=== PATIENT | female | born 1980 | race Caucasian/White ===

== ENCOUNTER 2020-02-07 07:59 | Inpatient (IN) | payer OTHER ==
--- NOTE | 2020-02-07 08:19 | PDOC ---
History of Present Illness - General Stated Complaint: ABD PAIN Time Seen by Provider: 02/07/20 08:16 History Source: Patient Exam Limitations: No Limitations - History of Present Illness Initial Comments: 02/07/20 08:17 39yF w PMHx R ovarian cyst, EtOH use, appendectomy (Dr Gamez 12/12) presenting w sudden onset constant moderate RLQ pain, nausea, ABD distension which woke her up from sleep at 7p last night. Took tylenol, tonia tea w/o relief. No bowel mvmts since pain onset. Had appendicits s/p appendectomy done by Dr Gamez 12/12. Denies recent EtOH use. Denies fever, vomiting, chest pain, SOB, dysuria. Past History - Medical History Allergies/Adverse Reactions: Allergies Allergy/AdvReac Type Severity Reaction Status Date / Time No Known Allergies Allergy Verified 02/07/20 08:26 Home Medications: Ambulatory Orders NK [No Known Home Medication] 12/13/19 COPD: No - Surgical History Appendectomy: Yes (? jan 12 2020) - Immunization History Immunization Up to Date: Yes - Psycho-Social/Smoking History Smoking History: Never smoked Have you smoked in the past 12 months: No Review of Systems - Review of Systems Constitutional: No: Chills, Fever HEENTM: No: Eye Pain, Nose Congestion Respiratory: No: Cough, Shortness of Breath Cardiac (ROS): No: Chest Pain, Palpitations ABD/GI: Yes: Abdominal Distended, Nausea. No: Constipated, Diarrhea, Vomiting : No: Burning, Dysuria Musculoskeletal: No: Back Pain, Joint Pain Integumentary: No: Bruising, Flushing Neurological: No: Headache, Seizure Psychiatric: No: Anxiety, Depression Endocrine: No: Intolerance to Cold, Intolerance to Heat Hematologic/Lymphatic: No: Anemia, Blood Clots *Physical Exam - Physical Exam General Appearance: Yes: Nourished, Appropriately Dressed, Mild Distress HEENT: positive: EOMI, ALFA, Normal Voice, Hearing Grossly Normal. negative: Scleral Icterus (R), Scleral Icterus (L) Respiratory/Chest: positive: Lungs Clear, Normal Breath Sounds. negative: Chest Tender, Respiratory Distress Cardiovascular: positive: Regular Rhythm, Regular Rate, S1, S2. negative: Edema, Murmur Gastrointestinal/Abdominal: positive: Tender (moderate RLQ, mild diffuse), Soft, Distended (mild), Other (healed RLQ surgical scar) Musculoskeletal: negative: CVA Tenderness (R), CVA Tenderness (L) Extremity: negative: Pedal Edema Integumentary: positive: Normal Color, Warm Neurologic: positive: Fully Oriented, Alert, Normal Response, Responsive ED Treatment Course - LABORATORY CBC & Chemistry Diagram: 02/07/20 09:50 02/07/20 09:50 Medical Decision Making - Medical Decision Making 02/07/20 08:56 TVUS - no sign of torsion, echogenic vascular mass/polyp 1.7x0.9cm likely complex surrounding fluid/hemorrhage in endometrial cavity EKG - NSR, HR 97, QTc 464, no ST changes CT A/P - s/p appendectomy w postop fluid collections, RLQ soft tissue inflammation, small abscesses 13 w L shift --- 39yF w PMHx R ovarian cyst, EtOH use, appendectomy (Dr Gamez 12/12) presenting w 1d RLQ pain, nausea, ABD distension d/t postop abscesses/fluid and UTI. Also has endometrial echogenic vascular mass needing OBGYN f/u. Low concern for ovarian torsion (neg) vs kidney stone (no blood) vs (neg) vs pancreatitis (lipase low) Given 1L NS, zofran, morphine, vanc, zosyn Consulted Dr Gamez - unsure why pt will have abscess 2mo from surgery, not surgical option, likely IR drainage Admit m/s for postop abscesses, UTI, endometrial mass No PCP Discharge - Discharge Information Problems reviewed: Yes Clinical Impression/Diagnosis: Postoperative abscess, Endometrial mass UTI (urinary tract infection) Qualifiers: Urinary tract infection type: acute cystitis Hematuria presence: without hematuria Qualified Code(s): N30.00 - Acute cystitis without hematuria Condition: Stable - Follow up/Referral - Patient Discharge Instructions - Post Discharge Activity
[2020-02-07] MEDS ORDERED: morphine CARPU-JECT 4 MG/1 ML DISP.SYRIN IVPUSH ONE (08:40)
[2020-02-07] MEDS ORDERED: SODIUM CHLORIDE 0.9% 500 ML INFUS.BAG IV ONE (08:41)
[2020-02-07] MEDS ORDERED: ONDANSETRON 4 MG/2 ML VIAL IVPUSH ONE (08:41)
[2020-02-07] MEDS ORDERED: morphine SULFATE 4 MG/ML VIAL ONE (08:53)
--- NOTE | 2020-02-07 09:28 | PDOC ---
Attending Attestation - Resident Resident Name: Isaias Harp - ED Attending Attestation I have performed the following: I have examined & evaluated the patient, The case was reviewed & discussed with the resident, I agree w/resident's findings & plan, Exceptions are as noted - HPI HPI: 39 yo history ovarian cyst, EtOH use, appendectomy 12/12 presents with RLQ pain, nausea, abdominal swelling, woke her from sleep last night. Has been taking tylenol for pain, no significant relief. Has not had BM since pain started. Had an open appendectomy 2 months ago, uncomplicated. Denies fever, chills, vomiting. - Physicial Exam PE: GENERAL: Awake, alert, and fully oriented, in no acute distress. Appears uncomfortable. HEAD: No signs of trauma EYES: PERRLA, EOMI, sclera anicteric, conjunctiva clear ENT: Auricles normal inspection, hearing grossly normal, nares patent, oropharynx clear without exudates. Moist mucosa NECK: Normal ROM, supple, no lymphadenopathy, JVD, or masses LUNGS: Breath sounds equal, clear to auscultation bilaterally. No wheezes, and no crackles HEART: Regular rate and rhythm, normal S1 and S2, no murmurs, rubs or gallops ABDOMEN: Soft, mildly distended, diffusely tender, but worst in RLQ. Abd is somewhat firm. Dec bowel sounds. +Guarding, +rebound. No masses EXTREMITIES: Normal range of motion, no edema. No clubbing or cyanosis. No cords, erythema, or tenderness NEUROLOGICAL: Cranial nerves II through XII grossly intact. Normal speech. Motor and sensation intact SKIN: Warm, dry, normal turgor, no rashes or lesions noted. - Medical Decision Making Pt with diffusely tender abdomen, with guarding on initial exam. CT shows abscess formation in abd. Will give abx, consult Dr. Gamez, admit. Discharge - Discharge Information Problems reviewed: Yes Clinical Impression/Diagnosis: Postoperative abscess, Endometrial mass UTI (urinary tract infection) Qualifiers: Urinary tract infection type: acute cystitis Hematuria presence: without hematuria Qualified Code(s): N30.00 - Acute cystitis without hematuria Condition: Stable - Follow up/Referral - Patient Discharge Instructions - Post Discharge Activity
[2020-02-07 10:20] LABS: BASO % 0.1 % (0-2.0); HEMATOCRIT 33.6 % (32.4-45.2); HEMOGLOBIN 10.7 GM/dL (10.7-15.3); LYMPH % 2.8 % (8-40); MCH 24.6 pg (25.7-33.7); MCHC 31.9 g/dl (32.0-36.0); MEAN CELL VOLUME 77.2 fl (80-96); MEAN PLT VOLUME 10.1 fl (7.5-11.1); MONO % 2.8 % (3.8-10.2); NEUT % 94.3 % (42.8-82.8); PLATELET COUNT 123 K/MM3 (134-434); RBC 4.36 M/mm3 (3.60-5.2); RDW 16.3 % (11.6-15.6); WHITE BLOOD COUNT 13.7 K/mm3 (4.0-10.0)
[2020-02-07 10:28] LABS: EPI CELLS 31 /uL (0-25.1); HYALINE CASTS 1 /uL (0-3.1); PH,URINE 7.5 (5.0-8.0); URINE APPEARANCE CLOUDY; URINE BACTERIA 3162 /uL (0-1359); URINE BILIRUBIN NEGATIVE (NEGATIVE); URINE COLOR DK YELLOW; URINE GLUCOSE (UA) NEGATIVE (NEGATIVE); URINE KETONE TRACE (NEGATIVE); URINE LEUK ESTERASE NEGATIVE (NEGATIVE); URINE NITRITE NEGATIVE (NEGATIVE); URINE PROTEIN 1+ (NEGATIVE); URINE RBC 34 /uL (0-23.9); URINE WBC 33 /uL (0-25.8)
[2020-02-07 11:03] LABS: ALBUMIN 3.7 g/dl (3.4-5.0); BILIRUBIN,TOTAL 0.8 mg/dL (0.2-1); BLOOD UREA NITROGEN 6.6 mg/dL (7-18); CALCIUM 8.9 mg/dL (8.5-10.1); CREATININE 0.6 mg/dL (0.55-1.3)
[2020-02-07 12:20] LABS: ANISOCYTOSIS 1+; MACROCYTOSIS 1+; PLATELET ESTIMATE DECREASED
[2020-02-07] MEDS ORDERED: ACETAMINOPHEN 1000 MG/100 ML VIAL (NON FORMULARY) IVPB ONE (12:47)
[2020-02-07] MEDS ORDERED: PIPERACILLIN/TAZOB 4.5 GM 4.5 GM in DEXTROSE 5%-WATER 100 ML IVPB ONE (12:50)
[2020-02-07] MEDS ORDERED: VANCOMYCIN 1 GM in D5W (PRE-DOCKED) 1,000 MG/250 ML IVPB ONE (12:51)
[2020-02-07] MEDS ORDERED: PIPERACILLIN/TAZOB 4.5 GM 4.5 GM/100 ML BAG IVPB ONE (13:02)
[2020-02-07] MEDS ORDERED: ACETAMINOPHEN INJECTION 100 ML IVPB ONE (13:02)
[2020-02-07] MEDS ORDERED: VANCOMYCIN 1 GRAM (PRE-DOCKED) 1,000 MG/250 ML BAG IVPB ONE (13:49)
--- NOTE | 2020-02-07 14:09 | EKG ---
Test Reason : Blood Pressure : / mmHG Vent. Rate : 097 BPM Atrial Rate : 097 BPM P-R Int : 160 ms QRS Dur : 080 ms QT Int : 366 ms P-R-T Axes : 029 015 032 degrees QTc Int : 464 ms NORMAL SINUS RHYTHM NORMAL ECG NO PREVIOUS ECGS AVAILABLE Confirmed by Abad Stuart ([id number]) on 02/07/2020 2:08:33 PM Referred By: Confirmed By:Abad Stuart
[2020-02-07] MEDS ORDERED: FAMOTIDINE 20 MG/50 ML IVPB 20 MG/50 ML MG IVPB ONE ×2 (14:18→14:28)
--- NOTE | 2020-02-07 14:37 | CONSULT ---
- Consultation REQUESTING PROVIDER: Jorge LUGO CONSULT REQUEST: We have been asked to surgically evaluate this patient for abdominal pain. PCP: HISTORY OF PRESENT ILLNESS: [place] who is a 39 y/o female s/p open appendectomy for acute uncomplicated appendicitis 12/13/2019; she did well post op; intra abdominal cultures were negative for any growth at the time and she has been seen in the office post op; she developed RLQ pain yesterday and nausea and ? distention; she came to the ED for evaluation; she has been eating and moving her bowels. PMHx: none. PSHx: as above. Home Medications Medication Instructions Recorded NK [No Known Home Medication] 12/13/19 Allergies Allergy/AdvReac Type Severity Reaction Status Date / Time No Known Allergies Allergy Verified 02/07/20 08:26 REVIEW OF SYSTEMS: CONSTITUTIONAL: Absent: fever, chills, diaphoresis, generalized weakness, malaise, loss of ap petite, weight change CARDIOVASCULAR: Absent: chest pain, syncope, palpitations, irregular heart rate, lightheadedness, peripheral edema RESPIRATORY: Absent: cough, shortness of breath, dyspnea with exertion, wheezing, stridor, hemoptysis GASTROINTESTINAL: Present: abdominal pain, abdominal distension, nausea, vomiting. Absent: diarrhea, constipation, melena, hematochezia GENITOURINARY: Absent: dysuria, frequency, urgency, hesitancy, hematuria, flank pain, genital pain MUSCULOSKELETAL: Absent: myalgia, arthralgia, joint swelling, back pain, neck pain SKIN: Absent: rash, itching, pallor HEMATOLOGIC/IMMUNOLOGIC: Absent: easy bleeding, easy bruising, lymphadenopathy NEUROLOGIC: Absent: headache, focal weakness, paresthesias, dizziness, unsteady gait, seizure, mental status changes, bladder or bowel incontinence PSYCHIATRIC: Absent: anxiety, depression, suicidal or homicidal ideation, hallucinations. PHYSICAL EXAM: GENERAL: Awake, alert, and fully oriented, in no acute distress. HEAD: Normal with no signs of trauma. EYES: PERRL, sclera anicteric, conjunctiva clear. NECK: Normal ROM, supple without lymphadenopathy, JVD, or masses. ABDOMEN: Soft,minimaly tender RLQ, not distended, normoactive bowel sounds, no guarding, no rebound, no masses. No organomegaly. Healed scar; no hernias. MUSCULOSKELETAL: Normal ROM at all joints. No bony deformities or tenderness. No CVA tenderness. UPPER EXTREMITIES: 2+ pulses, warm, well-perfused. No cyanosis. Cap refill <2 seconds. No peripheral edema. LOWER EXTREMITIES: 2+ pulses, warm, well-perfused. No calf tenderness. No peripheral edema. NEUROLOGICAL: Normal speech, gait not observed. PSYCH: Cooperative. Good eye contact. Appropriate mood and affect. SKIN: Warm, dry, normal turgor, no rashes or lesions noted. Vital Signs Temperature 100.1 F H 02/07/20 10:00 Pulse Rate 104 H 02/07/20 10:00 Respiratory Rate 16 02/07/20 10:00 Blood Pressure 122/72 02/07/20 10:00 O2 Sat by Pulse Oximetry (%) 98 02/07/20 10:00 Lab Results WBC 13.7 K/mm3 (4.0-10.0) H 02/07/20 09:50 RBC 4.36 M/mm3 (3.60-5.2) 02/07/20 09:50 Hgb 10.7 GM/dL (10.7-15.3) 02/07/20 09:50 Hct 33.6 % (32.4-45.2) 02/07/20 09:50 MCV 77.2 fl (80-96) L 02/07/20 09:50 MCHC 31.9 g/dl (32.0-36.0) L 02/07/20 09:50 RDW 16.3 % (11.6-15.6) H 02/07/20 09:50 Plt Count 123 K/MM3 (134-434) L 02/07/20 09:50 Sodium 138 mmol/L (136-145) 02/07/20 09:50 Potassium 4.0 mmol/L (3.5-5.1) 02/07/20 09:50 Chloride 105 mmol/L (98-107) 02/07/20 09:50 Carbon Dioxide 25 mmol/L (21-32) 02/07/20 09:50 Anion Gap 8 MMOL/L (8-16) 02/07/20 09:50 BUN 6.6 mg/dL (7-18) L 02/07/20 09:50 Creatinine 0.6 mg/dL (0.55-1.3) 02/07/20 09:50 Random Glucose 119 mg/dL (74-106) H 02/07/20 09:50 Calcium 8.9 mg/dL (8.5-10.1) 02/07/20 09:50 CT scan a/p reviewed IMP: ?intraabdominal abscess ? > 30 days post op w/o evidence of an acute surgical abdomen s/p open appendectomy 12/13/2019. PLAN: NPO/IVF/IVABS/ID Consult/IR consult for IRD collection; d/w the patient in [place]. Melvin Gamez MD FACS
--- NOTE | 2020-02-07 15:49 | HP ---
CHIEF COMPLAINT: Abdominal pains HISTORY OF PRESENT ILLNESS: 39 year old female who is sp appendectomy (12/13/19), known history of right ovarian cyst, alcohol use, who presents to the ED complaining of sudden onset of severe right lower qudrant pain which woke her up from sleep. She took OTC meds without relief prompting her to present to the ED At the ED she was found to be tachycardic and febrile. CT scan of the abdomen abnormal prompting admission. PAST MEDICAL HISTORY: as above PAST SURGICAL HISTORY: as above Social History: Smoking: denies Alcohol: she drinks alcohol ([place] beer) regularly, at least 5 per day Drugs: denies Family history: both parents are alive and well Allergies No Known Allergies Allergy (Verified 02/07/20 08:26) HOME MEDICATIONS: Home Medications Medication Instructions Recorded NK [No Known Home Medication] 12/13/19 REVIEW OF SYSTEMS CONSTITUTIONAL: Absent: fever, chills, diaphoresis, generalized weakness, malaise, loss of appetite HEENT: Absent: rhinorrhea, nasal congestion, throat pain, throat swelling, difficulty swallowing, mouth swelling, ear pain, eye pain, visual changes CARDIOVASCULAR: Absent: chest pain, syncope, palpitations, irregular heart rate, lightheadedness, peripheral edema RESPIRATORY: Absent: cough, shortness of breath, dyspnea with exertion, orthopnea, wheezing, stridor, hemoptysis GASTROINTESTINAL: Absent: abdominal pain, abdominal distension, nausea, vomiting, diarrhea, constipation, melena, hematochezia GENITOURINARY: Absent: dysuria, frequency, urgency, hesitancy, hematuria, flank pain, genital pain MUSCULOSKELETAL: Absent: myalgia, arthralgia, joint swelling, back pain, neck pain SKIN: Absent: rash, itching, pallor HEMATOLOGIC/IMMUNOLOGIC: Absent: easy bleeding, easy bruising, lymphadenopathy, frequent infections ENDOCRINE: Absent: unexplained weight gain, unexplained weight loss, heat intolerance, cold intolerance NEUROLOGIC: Absent: headache, focal weakness or paresthesias, dizziness, unsteady gait, seizure, mental status changes, bladder or bowel incontinence PSYCHIATRIC: Absent: anxiety, depression, suicidal or homicidal ideation, hallucinations. PHYSICAL EXAMINATION Vital Signs - 24 hr 02/07/20 02/07/20 02/07/20 08:00 10:00 14:30 Temperature 99.2 F 100.1 F H 98.9 F Pulse Rate 86 Pulse Rate [ 104 H Right Radial] Respiratory 16 16 Rate Blood Pressure 112/77 Blood Pressure 122/72 [Right Arm] O2 Sat by Pulse 99 98 Oximetry (%) 02/07/20 15:30 Temperature Pulse Rate Pulse Rate [ 104 H Right Radial] Respiratory 18 Rate Blood Pressure Blood Pressure 122/78 [Right Arm] O2 Sat by Pulse 98 Oximetry (%) GENERAL: Awake, alert, and fully oriented, in no acute distress. HEAD: Normal with no signs of trauma. EYES: Pupils equal, round and reactive to light, extraocular movements intact, sclera anicteric, conjunctiva clear. No lid lag. EARS, NOSE, THROAT: Ears normal, nares patent, oropharynx clear without exudates. Moist mucous membranes. NECK: Normal range of motion, supple without lymphadenopathy, JVD, or masses. LUNGS: Breath sounds equal, clear to auscultation bilaterally. No wheezes, and no crackles. No accessory muscle use. HEART: Regular rate and rhythm, normal S1 and S2 without murmur, rub or gallop. ABDOMEN: Soft, generalized tenderness however worse at the right lower quadrant; the surgical scar is notedly well healed. Abdomen is not distended, no bowel sounds, no guarding, no rebound, no masses. No hepatomegaly or splenomegaly. MUSCULOSKELETAL: Normal range of motion at all joints. No bony deformities or tenderness. No CVA tenderness. UPPER EXTREMITIES: 2+ pulses, warm, well-perfused. No cyanosis. No clubbing. No peripheral edema. LOWER EXTREMITIES: 2+ pulses, warm, well-perfused. No calf tenderness. No peripheral edema. NEUROLOGICAL: Cranial nerves III-XII intact. Normal speech. Normal gait. PSYCHIATRIC: Cooperative. Good eye contact. Appropriate mood and affect. SKIN: Warm, dry, decreased turgor. faint homogenous rash noted on the face and arms. No lesions noted, normal capillary refill. Laboratory Results - last 24 hr 02/07/20 02/07/20 02/07/20 09:50 09:50 09:50 WBC 13.7 H RBC 4.36 Hgb 10.7 Hct 33.6 MCV 77.2 L MCH 24.6 L MCHC 31.9 L RDW 16.3 H Plt Count 123 L MPV 10.1 Absolute Neuts (auto) 12.9 H Neutrophils % 94.3 H D Neutrophils % (Manual) 76.2 Band Neutrophils % 15.8 Lymphocytes % 2.8 L D Lymphocytes % (Manual) 4.0 L D Monocytes % 2.8 L Monocytes % (Manual) 4 D Eosinophils % 0.0 D Eosinophils % (Manual) 0.0 D Basophils % 0.1 Basophils % (Manual) 0.0 Myelocytes % (Man) 0 D Promyelocytes % (Man) 0 Blast Cells % (Manual) 0 Nucleated RBC % 0 Metamyelocytes 0 Hypochromia 0 Platelet Estimate Decreased Platelet Comment Present Polychromasia 1+ Poikilocytosis 1+ Anisocytosis 1+ Microcytosis 1+ Macrocytosis 1+ Spherocytes 1+ Stomatocytes 1+ Sodium Potassium Chloride Carbon Dioxide Anion Gap BUN Creatinine Est GFR (CKD-EPI)AfAm Est GFR (CKD-EPI)NonAf Random Glucose Lactic Acid Calcium Total Bilirubin AST ALT Alkaline Phosphatase Total Protein Albumin Lipase Serum , Qual Negative Urine Color Dk yellow Urine Appearance Cloudy Urine pH 7.5 Ur Specific [place] 1.025 Urine Protein 1+ H Urine Glucose (UA) Negative Urine Ketones Trace H Urine Blood Negative Urine Nitrite Negative Urine Bilirubin Negative Urine Urobilinogen 2.0 H Ur Leukocyte Esterase Negative Urine WBC (Auto) 33 Urine RBC (Auto) 34 Urine Casts (Auto) 1 U Epithel Cells (Auto) 31 Urine Bacteria (Auto) 3162 02/07/20 02/07/20 09:50 13:20 WBC RBC Hgb Hct MCV MCH MCHC RDW Plt Count MPV Absolute Neuts (auto) Neutrophils % Neutrophils % (Manual) Band Neutrophils % Lymphocytes % Lymphocytes % (Manual) Monocytes % Monocytes % (Manual) Eosinophils % Eosinophils % (Manual) Basophils % Basophils % (Manual) Myelocytes % (Man) Promyelocytes % (Man) Blast Cells % (Manual) Nucleated RBC % Metamyelocytes Hypochromia Platelet Estimate Platelet Comment Polychromasia Poikilocytosis Anisocytosis Microcytosis Macrocytosis Spherocytes Stomatocytes Sodium 138 Potassium 4.0 Chloride 105 Carbon Dioxide 25 Anion Gap 8 BUN 6.6 L Creatinine 0.6 Est GFR (CKD-EPI)AfAm 131.22 Est GFR (CKD-EPI)NonAf 113.22 Random Glucose 119 H Lactic Acid 1.4 Calcium 8.9 Total Bilirubin 0.8 AST 35 ALT 37 Alkaline Phosphatase 93 Total Protein 8.0 Albumin 3.7 Lipase 56 L Serum , Qual Urine Color Urine Appearance Urine pH Ur Specific [place] Urine Protein Urine Glucose (UA) Urine Ketones Urine Blood Urine Nitrite Urine Bilirubin Urine Urobilinogen Ur Leukocyte Esterase Urine WBC (Auto) Urine RBC (Auto) Urine Casts (Auto) U Epithel Cells (Auto) Urine Bacteria (Auto) Transvaginal US- both ovaries unremarkable. Normal thickness of endometrial stripe. with suggestion of an echogenic vascular mass/polyp. Likely complex surrouding fluid/hemorrhage in the endometrial cavity. HYDRAULIC PILE HAMMER OPERATOR consult suggested and further evaluation recommended. There is small amount of free fluid in the cul de sac and right adnexa. ASSESSMENT/PLAN: 1. RLQ pain - RLQ US showing possible fluid/hemorrage - foreign correspondent HYDRAULIC PILE HAMMER OPERATOR physician Dr Berger consulted - received empiric antibiotics in ED. She became flushed in face and arms. Flushing diminished after famotidine and benadryl. Will cont pip-tazo in the interim. - blood cultures - will request for Dr Sandoval of ID to see patient - fluid hydration - appreciate input by Dr Gamez - NPo except meds - tylenol for fevers 2. SCD for DVt prophylaxis Visit type - Emergency Visit Emergency Visit: Yes ED Registration Date: 02/07/20 Care time: The patient presented to the Emergency Department on the above date and was hospitalized for further evaluation of their emergent condition. - New Patient This patient is new to me today: Yes Date on this admission: 02/09/20 - Critical Care Critical Care patient: No
[2020-02-07] MEDS: SODIUM CHLORIDE 1,000 ML IV SCH (16:15)
[2020-02-07] MEDS ORDERED: ONDANSETRON 4 MG/2 ML VIAL IVPUSH PRN (16:20)
[2020-02-07 19:19] VITALS: BMI 28.3
[2020-02-07] MEDS ORDERED: PIPERACILLIN/TAZOB 3.375 GM 3.375 GM in DEXTROSE 5%-WATER - 50 ML IVPB SCH (19:45)
[2020-02-07] MEDS ORDERED: DEXTROSE 5%-WATER 100 ML IVPB ONE (19:49)
[2020-02-07] MEDS ORDERED: PIPERACILLIN/TAZOBACTAM 4.5 GM VIAL IVPB ONE (19:49)
[2020-02-07] MEDS ORDERED: LORazepam 1 MG TABLET PO PRN (19:56)
[2020-02-07] MEDS: ACETAMINOPHEN 1000 MG/100 ML VIAL (NON FORMULARY) IVPB PRN (20:01)
[2020-02-07] MEDS: PIPERACILLIN/TAZOB 4.5 GM 4.5 GM in DEXTROSE 5%-WATER 100 ML IVPB SCH (20:07)
[2020-02-07] MEDS: FOLIC ACID 1 MG TABLET (FP) PO SCH (20:08)
[2020-02-07] MEDS: THIAMINE HCL 100 MG TABLET (FP) PO SCH (20:08)
[2020-02-07] MEDS: MULTIVIT-MINERALS ORAL LIQUID PO SCH (21:29)
[2020-02-08] MEDS ORDERED: PIPERACILLIN/TAZOBACTAM 4.5 GM VIAL IVPB ONE ×3 (01:26→15:40)
[2020-02-08] MEDS ORDERED: DEXTROSE 5%-WATER 100 ML IVPB ONE ×3 (01:26→15:40)
[2020-02-08] MEDS: ACETAMINOPHEN 1000 MG/100 ML VIAL (NON FORMULARY) IVPB PRN ×3 (01:36→17:28)
[2020-02-08] MEDS: PIPERACILLIN/TAZOB 4.5 GM 4.5 GM in DEXTROSE 5%-WATER 100 ML IVPB SCH ×3 (02:54→18:16)
[2020-02-08] MEDS: SODIUM CHLORIDE 1,000 ML IV SCH ×2 (05:41→17:31)
--- NOTE | 2020-02-08 07:44 | PN ---
Progress Note (short form) - Note Progress Note: Attending Surgeon Case d/w Dr. Hope yesterday; no IRD is planned; full not to follow.
[2020-02-08 08:08] LABS: HEMATOCRIT 30.4 % (32.4-45.2); HEMOGLOBIN 9.8 GM/dL (10.7-15.3); MCH 24.8 pg (25.7-33.7); MCHC 32.2 g/dl (32.0-36.0); MEAN CELL VOLUME 76.9 fl (80-96); PLATELET COUNT 97 K/MM3 (134-434); RBC 3.95 M/mm3 (3.60-5.2); RDW 16.7 % (11.6-15.6); WHITE BLOOD COUNT 10.6 K/mm3 (4.0-10.0)
[2020-02-08 08:31] LABS: BLOOD UREA NITROGEN 7.6 mg/dL (7-18); CREATININE 0.5 mg/dL (0.55-1.3); POTASSIUM 3.5 mmol/L (3.5-5.1)
[2020-02-08] MEDS ORDERED: PT OWN MED DRAWER 7, Y5N ONE (09:02)
[2020-02-08] MEDS ORDERED: VANCOMYCIN 1,000 MG in DEXTROSE 5%-WATER - 250 ML IVPB SCH (09:30)
[2020-02-08] MEDS: THIAMINE HCL 100 MG TABLET (FP) PO SCH (09:55)
[2020-02-08] MEDS: FOLIC ACID 1 MG TABLET (FP) PO SCH (09:55)
[2020-02-08] MEDS: MULTIVIT-MINERALS ORAL LIQUID PO SCH (09:55)
[2020-02-08 11:09] LABS: INR 1.36 (0.83-1.09); PROTHROMBIN TIME (PATIENT) 16.1 SEC (9.7-13.0)
--- NOTE | 2020-02-08 11:19 | PN ---
Progress Note (short form) - Note Progress Note: Attending Surgeon Seen in f/u; minimal if any complaints. VSS was febrile last PM abdo-soft and non tender; o/w negative. WBC nl today IMP: improved PLAN: Continue IVAB's and start trial of clear iquids; case was d/w Dr. Hope yesterday who belived 3.0 cm. structure thought to be an abscess is the right ovary and o/w there are post op changes; will need f/u CT scan at some point. Melvin Gamez MD FACS
--- NOTE | 2020-02-08 12:45 | CON.ID ---
Consult Consult Specialty:: infectious diseases Referred by:: dr johns Reason for Consultation:: abd pain ,fever, post op - History of Present Illness Chief Complaint: fever,abd pain History of Present Illness: 39 year old female who is sp appendectomy (12/13/19), known history of right ovarian cyst, alcohol use, admitted complaining of sudden onset of severe right lower qudrant pain which woke her up from sleep. She took OTC meds without relief prompting her to present to the ED patient was worked up and imaging studies shows probably abscess patient spiking fevers and continues to have sever abd pain at the operated site - History Source History Provided By: Patient, Medical Record Limitations to Obtaining History: Language Barrier - Alcohol/Substance Use Hx Alcohol Use: Yes - Smoking History Smoking history: Never smoked Have you smoked in the past 12 months: No Home Medications - Allergies Allergies/Adverse Reactions: Allergies Allergy/AdvReac Type Severity Reaction Status Date / Time No Known Allergies Allergy Verified 02/07/20 08:26 - Home Medications Home Medications: Ambulatory Orders NK [No Known Home Medication] 12/13/19 Review of Systems - Review of Systems Constitutional: reports: Fever, Other Eyes: reports: No Symptoms HENT: reports: No Symptoms Neck: reports: No Symptoms Cardiovascular: reports: No Symptoms Respiratory: reports: No Symptoms Gastrointestinal: reports: Abdominal Pain Genitourinary: reports: No Symptoms Musculoskeletal: reports: No Symptoms Integumentary: reports: No Symptoms Neurological: reports: No Symptoms Endocrine: reports: No Symptoms Hematology/Lymphatic: reports: No Symptoms Psychiatric: reports: No Symptoms Physical Exam Vital Signs: Vital Signs Temperature 102 F H 02/08/20 09:00 Pulse Rate 104 H 02/08/20 09:00 Respiratory Rate 18 02/08/20 09:00 Blood Pressure 116/68 02/08/20 09:00 O2 Sat by Pulse Oximetry (%) 97 02/08/20 09:00 Constitutional: Yes: Well Nourished, Calm, Moderate Distress Eyes: Yes: Conjunctiva Clear HENT: Yes: Atraumatic, Normocephalic Neck: Yes: Supple, Trachea Midline Cardiovascular: Yes: Regular Rate and Rhythm Respiratory: Yes: Regular, CTA Bilaterally Gastrointestinal: Yes: Soft, Tenderness Musculoskeletal: Yes: WNL Extremities: Yes: WNL Wound/Incision: Yes: Clean/Dry Neurological: Yes: Alert, Oriented Psychiatric: Yes: Alert, Oriented Labs: CBC, BMP 02/08/20 06:35 02/08/20 06:35 Imaging - Results Cat Scan: Report Reviewed, Image Reviewed Ultrasound: Report Reviewed, Image Reviewed Assessment/Plan this patient post op who is coming with fever and abd pain suspicion of abscess as well as ovarian abscess i would continue abx monitor fevers if fevers continue will decide what to do rest as per the team
--- NOTE | 2020-02-08 13:02 | PN ---
Physical Exam: SUBJECTIVE: Patient seen and examined at bedside this morning. She endorses improvement in her abdominal pain, and some nausea. Denies shortness of breath, chest pain, palpitations. She states her last drink was 8 beers on Friday. OBJECTIVE: Vital Signs Period Temp Pulse Resp BP Sys/Arboleda Pulse Ox Last 24 Hr 98.9 F-103 F 94-106 16-20 108-123/66-80 97-100 GENERAL: The patient is awake, alert, and fully oriented, in no acute distress. HEAD: Normocephalic, atraumatic. EYES: PERRL, extraocular movements intact, sclera anicteric, conjunctiva clear. ENT: Oropharynx clear, without erythema or exudates. Moist mucous membranes. NECK: Trachea midline, full range of motion. Supple without lymphadenopathy. LUNGS: Breath sounds equal, clear to auscultation bilaterally. No wheezes, no crackles. No accessory muscle use. HEART: Regular rate and rhythm. S1, S2 without murmur, rub or gallop. ABDOMEN: Soft, nondistended. Tenderness to deep palpation worst at right lower quadrant. No rebound tenderness, no guarding. Normoactive bowel sounds x4 quadrants. No hepatosplenomegaly, no masses appreciated. RECTAL: Good anal sphincter tone. Negative external or internal hemorrhoids appreciated. Streak of burgos brown stool upon gloved finger. Negative brandy red blood. Performed with entry level marketing assistant (Patient's nurse Lindsay) EXTREMITIES: 2+ radial, dorsalis pedis pulses bilaterally. Warm, well-perfused. No lower extremity edema bilaterally. NEUROLOGICAL: Cranial nerves II through XII grossly intact. Normal speech. No gross focal deficits. Negative tremors bilateral arms. PSYCH: Normal mood, normal affect upon my encounter. SKIN: Warm, dry. Right lower quadrant open appendectomy scar clean, dry, well healed. Laboratory Results - last 24 hr 02/07/20 02/07/20 02/08/20 13:20 13:20 06:35 WBC 10.6 H RBC 3.95 Hgb 9.8 L Hct 30.4 L MCV 76.9 L MCH 24.8 L MCHC 32.2 RDW 16.7 H Plt Count 97 L D MPV 11.0 PT with INR INR Sodium Potassium Chloride Carbon Dioxide Anion Gap BUN Creatinine Est GFR (CKD-EPI)AfAm Est GFR (CKD-EPI)NonAf Random Glucose Lactic Acid 1.4 Calcium COVID-19 (SHASHANK) Not detected 02/08/20 02/08/20 06:35 10:20 WBC RBC Hgb Hct MCV MCH MCHC RDW Plt Count MPV PT with INR 16.10 H INR 1.36 H Sodium 136 Potassium 3.5 Chloride 105 Carbon Dioxide 23 Anion Gap 9 BUN 7.6 Creatinine 0.5 L Est GFR (CKD-EPI)AfAm 139.33 Est GFR (CKD-EPI)NonAf 120.22 Random Glucose 86 Lactic Acid Calcium 8.0 L COVID-19 (SHASHANK) Active Medications Generic Name Dose Route Start Last Admin Trade Name Freq PRN Reason Stop Dose Admin Acetaminophen 1,000 mg 02/07/20 19:41 02/08/20 09:55 Ofirmev Injection - IVPB 02/08/20 19:41 1,000 mg Q6H PRN Administration FEVER Folic Acid 1 mg 02/07/20 20:00 02/08/20 09:55 Folic Acid - PO 1 mg DAILY LAUREANO Administration Sodium Chloride 1,000 mls @ 100 mls/hr 02/07/20 16:15 02/08/20 05:41 Normal Saline - IV 02/10/20 02:14 100 mls/hr ASDIR LAUREANO Administration Piperacillin Sod/Tazobactam 100 mls @ 200 mls/hr 02/07/20 19:45 02/08/20 09:56 Sod 4.5 gm/ Dextrose IVPB 200 mls/hr Q8H-IV LAUREANO Administration Vancomycin HCl 1,000 mg/ 250 mls @ 200 mls/hr 02/08/20 09:30 Dextrose IVPB Q24H LAUREANO Protocol Lorazepam 2 mg 02/07/20 19:56 Ativan - PO TID PRN AGITATION Multivitamins/Minerals 15 ml 02/07/20 20:00 02/08/20 09:55 Certavite-Antioxidant Liquid PO 15 ml DAILY LAUREANO Administration Ondansetron HCl 4 mg 02/07/20 16:20 Zofran Injection IVPUSH Q6H PRN NAUSEA AND/OR VOMITING Thiamine HCl 100 mg 02/07/20 20:00 02/08/20 09:55 Vitamin B1 - PO 100 mg DAILY LAUREANO Administration ASSESSMENT/PLAN: Patient is a 39 year old female with history of open appendectomy (11/2019) presenting with severe right-sided abdominal pain. Sepsis secondary to abdominal abscess -Febrile overnight (Tmax 102.4F), WBC downtrending to 10.6 -CT abdomen, pelvis reveals postoperative fluid collections (3.0 x 2.2 x 2.1 cm). Additional 3cm collection at anterior abdominal wall. -General surgery recommendations (Dr. Gamez) appreciated. no surgical intervention indicated. Will trial clear liquid diet. -Infectious disease recomendations (Dr. Sandoval) appreciated. Continue Zosyn -Interventional radiology recommendations appreciated. Currently, the collection is too small for pigtail catheter drainage; may potentially aspirate, pending clinical course. -Follow Blood cultures. Urine cultures negative for growth. -Follow OBGYN consult (Dr. Berger) Alcohol use disorder -Patient endorses alcohol excess; last drink was 8 beers, four ays ago. -Currently no clinical signs of withdrawal; CIWA of 1 for slight headache. Negative tremors -Ativan 2mg PRN -Thiamine, Folic acid, multivitamin Microcytic anemia -Hb 9.8/ Hct 30.4. MCV 77 -Iron studies confirm Iron deficiency anemia. Begin Venofer. -Stool for occult blood negative. FEN -NS at 100mL/ hour. Can discontinue once tolerating oral intake -Follow BMP -Clear liquid diet Prophylaxis -Early ambulation Disposition -Continue care in medical- surgical floor. Visit type - Emergency Visit Emergency Visit: Yes ED Registration Date: 02/07/20 Care time: The patient presented to the Emergency Department on the above date and was hospitalized for further evaluation of their emergent condition. - New Patient This patient is new to me today: Yes Date on this admission: 02/08/20 - Critical Care Critical Care patient: No - Discharge Referral Referred to [facility] Med P.C.: No ATTENDING PHYSICIAN STATEMENT I saw and evaluated the patient. I reviewed the resident's note and discussed the case with the resident. I agree with the resident's findings and plan as documented. SUBJECTIVE: OBJECTIVE: ASSESSMENT AND PLAN:
[2020-02-08] MEDS ORDERED: IRON SUCROSE INJECTION 100 MG in SODIUM CHLORIDE 95 ML IVPB ONE (16:35)
--- NOTE | 2020-02-08 17:08 | PN ---
Teaching Attending Note Name of Resident: Gutierrez Tejada ATTENDING PHYSICIAN STATEMENT I saw and evaluated the patient. I reviewed the resident's note and discussed the case with the resident. I agree with the resident's findings and plan as documented. SUBJECTIVE: Seen and examined at bedside. Pt reports pain is improving. Seen by IR: not amenable for IR drainage at this time. OBJECTIVE: Last Vital Signs Temp Pulse Resp BP Pulse Ox 98.9 F 93 H 18 121/80 97 02/08/20 14:00 02/08/20 14:00 02/08/20 14:00 02/08/20 14:00 02/08/20 09:00 PE: per resident note Labs/imaging: reviewed ASSESSMENT/PLAN: Patient is a 39 year old female with history of open appendectomy (11/2019) presenting with severe right-sided abdominal pain. Found to have abdominal abscesses. Sepsis secondary to abdominal abscess -CT abdomen, pelvis reveals small abscesses. Not amenable for IR drainage at this time per IR. May potentially aspirate at later date. No surgical intervention at this time. Plan to continue zosyn and follow. -General surgery recommendations (Dr. Gamez) appreciated. no surgical intervention indicated. Will trial clear liquid diet. -Follow Blood cultures. Urine cultures negative for growth. -Follow OBGYN consult (Dr. Berger) Iron Deficiency Anemia -IV iron -obtain menstrual hx -FOBT Disposition: Pending clinical course
[2020-02-09] MEDS ORDERED: oxyCODONE HCL 5 MG TABLET PO PRN ×2 (00:46)
[2020-02-09] MEDS ORDERED: PIPERACILLIN/TAZOBACTAM 4.5 GM VIAL IVPB ONE ×3 (01:56→16:58)
[2020-02-09] MEDS ORDERED: DEXTROSE 5%-WATER 100 ML IVPB ONE ×3 (01:56→16:58)
[2020-02-09] MEDS: PIPERACILLIN/TAZOB 4.5 GM 4.5 GM in DEXTROSE 5%-WATER 100 ML IVPB SCH ×3 (02:00→17:03)
[2020-02-09 07:41] LABS: HEMATOCRIT 30.4 % (32.4-45.2); HEMOGLOBIN 9.7 GM/dL (10.7-15.3); MCH 24.7 pg (25.7-33.7); MEAN PLT VOLUME 10.3 fl (7.5-11.1); PLATELET COUNT 104 K/MM3 (134-434); RBC 3.94 M/mm3 (3.60-5.2); RDW 16.3 % (11.6-15.6)
[2020-02-09 08:07] LABS: ALBUMIN 2.8 g/dl (3.4-5.0); BILIRUBIN,TOTAL 0.8 mg/dL (0.2-1); BLOOD UREA NITROGEN 4.7 mg/dL (7-18); CALCIUM 7.9 mg/dL (8.5-10.1); CREATININE 0.5 mg/dL (0.55-1.3); PHOSPHOROUS 2.6 mg/dL (2.5-4.9); POTASSIUM 3.4 mmol/L (3.5-5.1)
--- NOTE | 2020-02-09 09:02 | PN ---
Progress Note (short form) - Note Progress Note: Pt seen and examined. Reports continued rlq pain. Has been oob to the restroom. Tolerating clears with no n.v. Had a bm yesterday, diarrhea. Denies cp/sob. Vital Signs Temp 98.9 F 02/09/20 04:00 Pulse 90 02/09/20 04:00 Resp 20 02/09/20 04:00 BP 122/68 02/09/20 04:00 Pulse Ox 97 02/08/20 21:00 Intake & Output 02/08/20 02/08/20 02/09/20 11:59 23:59 11:59 Intake Total 200 2480 1000 Balance 200 2480 1000 Intake: IV 1000 700 Normal Saline - 1,000 ml 1000 700 @ 100 mls/hr IV ASDIR LAUREANO Rx#:[id number] IVPB 200 500 200 Oral 980 100 Other: Voiding Method Toilet Bedpan # Unmeasured Voids Void 1 1 1 Bowel Movement No Weight Measurement Method Standing Scale CBC, BMP 02/09/20 06:45 02/09/20 06:45 Gen: awake, alert, nad Resp: unlabored on RA Abdo: soft, nd, ttp in rlq, no rebound or guarding. + bowel sounds A/P: 39 y/o F w/ PMHx known right ovarian cyst/etoh abuse, s/p appendectomy (12/13/19), a/w sudden onset of severe right lower quadrant pain, Ct with ??post surgical abscess vs ovarian abscess. Pt continues to spike fevers on zosyn leukocytosis resolved +pain tolerating clears repeat ct abdo and pelvis with oral and iv contrast ordered d/w attending Dr thrasher
[2020-02-09] MEDS ORDERED: PT OWN MED DRAWER 7, Y5N ONE ×2 (09:16→10:48)
[2020-02-09] MEDS: THIAMINE HCL 100 MG TABLET (FP) PO SCH (09:34)
[2020-02-09] MEDS: FOLIC ACID 1 MG TABLET (FP) PO SCH (09:34)
--- NOTE | 2020-02-09 10:19 | PN ---
Progress Note, Physician History of Present Illness: still spiking fever feels better though wbc has normalized - Current Medication List Current Medications: Active Medications Folic Acid (Folic Acid -) 1 mg PO DAILY [facility] Last Admin: 02/09/20 09:34 Dose: 1 mg Documented by: Sodium Chloride (Normal Saline -) 1,000 mls @ 100 mls/hr IV ASDIR [facility] Stop: 02/10/20 02:14 Last Admin: 02/08/20 17:31 Dose: 100 mls/hr Documented by: Piperacillin Sod/Tazobactam (Sod 4.5 gm/ Dextrose) 100 mls @ 200 mls/hr IVPB Q8H-IV [facility] Last Admin: 02/09/20 09:34 Dose: 200 mls/hr Documented by: Potassium Chloride (Potassium Chloride 10 Meq Premix Ivpb -) 10 meq in 100 mls @ 100 mls/hr IVPB Q60M [facility] Stop: 02/09/20 11:59 Lorazepam (Ativan -) 2 mg PO TID PRN PRN Reason: AGITATION Multivitamins/Minerals (Certavite-Antioxidant Liquid) 15 ml PO DAILY [facility] Last Admin: 02/08/20 09:55 Dose: 15 ml Documented by: Ondansetron HCl (Zofran Injection) 4 mg IVPUSH Q6H PRN PRN Reason: NAUSEA AND/OR VOMITING Last Admin: 02/08/20 22:21 Dose: 4 mg Documented by: Oxycodone HCl (Roxicodone -) 10 mg PO ONCE PRN PRN Reason: PAIN LEVEL 7 - 10 Thiamine HCl (Vitamin B1 -) 100 mg PO DAILY [facility] Last Admin: 02/09/20 09:34 Dose: 100 mg Documented by: - Objective Vital Signs: Vital Signs Temperature 98.9 F 02/09/20 04:00 Pulse Rate 90 02/09/20 04:00 Respiratory Rate 20 02/09/20 04:00 Blood Pressure 122/68 02/09/20 04:00 O2 Sat by Pulse Oximetry (%) 97 02/08/20 21:00 Constitutional: Yes: Calm, Mild Distress Cardiovascular: Yes: S1, S2 Respiratory: Yes: Regular, CTA Bilaterally Gastrointestinal: Yes: Soft, Hypoactive Bowel Sounds Musculoskeletal: Yes: WNL Extremities: Yes: WNL Neurological: Yes: Alert, Oriented Psychiatric: Yes: Alert, Oriented Labs: CBC, BMP 02/09/20 06:45 02/09/20 06:45 INR, PTT INR 1.36 (0.83-1.09) H 02/08/20 10:20 Assessment/Plan 39 year old female with history of open appendectomy (11/2019) presenting with severe right-sided abdominal pain. Found to have abdominal abscesses. sepsis abd abscess fever anemia leukocytosis plan continue abx monitor fevers wbc has normalized rest as per the team
[2020-02-09] MEDS: KCL 10 MEQ IVPB 10 MEQ/100 ML INFUS.BAG IVPB SCH ×3 (10:45→15:45)
[2020-02-09] MEDS: MULTIVIT-MINERALS ORAL LIQUID PO SCH (11:19)
--- NOTE | 2020-02-09 12:28 | PN ---
Physical Exam: SUBJECTIVE: Patient seen and examined at bedside. Endorses continued abdominal pain, worst at right lower quadrant. However, she is tolerating clear liquid without nausea, or vomiting. Endorses subjective fevers, and chills overnight. OBJECTIVE: Vital Signs Period Temp Pulse Resp BP Sys/Arboleda Pulse Ox Last 24 Hr 98.9 F-102.1 F 90-107 18-20 120-134/66-80 97-97 GENERAL: The patient is awake, alert, and fully oriented, in no acute distress. HEAD: Normocephalic, atraumatic. EYES: PERRL, extraocular movements intact, sclera anicteric, conjunctiva clear. ENT: Oropharynx clear, without erythema or exudates. Moist mucous membranes. NECK: Trachea midline, full range of motion. Supple without lymphadenopathy. LUNGS: Breath sounds equal, clear to auscultation bilaterally. No wheezes, no crackles. No accessory muscle use. HEART: Regular rate and rhythm. S1, S2 without murmur, rub or gallop. ABDOMEN: Soft, nondistended. Tenderness to light palpation worst at right lower quadrant. No rebound tenderness. Normoactive bowel sounds x4 quadrants. No hepatosplenomegaly, no masses appreciated. EXTREMITIES: 2+ radial, dorsalis pedis pulses bilaterally. Warm, well-perfused. No lower extremity edema bilaterally. NEUROLOGICAL: Cranial nerves II through XII grossly intact. Normal speech. No gross focal deficits. Negative tremors bilateral arms. PSYCH: Normal mood, normal affect upon my encounter. SKIN: Warm, dry. Right lower quadrant open appendectomy scar clean, dry, well healed. Laboratory Results - last 24 hr 02/08/20 02/08/20 02/09/20 06:35 15:30 06:45 WBC 10.0 RBC 3.94 Hgb 9.7 L Hct 30.4 L MCV 77.0 L MCH 24.7 L MCHC 32.0 RDW 16.3 H Plt Count 104 L MPV 10.3 Sodium 136 Potassium 3.5 Chloride 105 Carbon Dioxide 23 Anion Gap 9 BUN 7.6 Creatinine 0.5 L Est GFR (CKD-EPI)AfAm 139.33 Est GFR (CKD-EPI)NonAf 120.22 Random Glucose 86 Calcium 8.0 L Phosphorus Magnesium Iron 13 L TIBC 307 Iron Saturation 4 L Unsaturated IBC 294 H Ferritin 50.9 Total Bilirubin AST ALT Alkaline Phosphatase Total Protein Albumin Stool Occult Blood Negative 02/09/20 06:45 WBC RBC Hgb Hct MCV MCH MCHC RDW Plt Count MPV Sodium 137 Potassium 3.4 L Chloride 106 Carbon Dioxide 22 Anion Gap 9 BUN 4.7 L Creatinine 0.5 L Est GFR (CKD-EPI)AfAm 139.33 Est GFR (CKD-EPI)NonAf 120.22 Random Glucose 91 Calcium 7.9 L Phosphorus 2.6 Magnesium 2.0 Iron TIBC Iron Saturation Unsaturated IBC Ferritin Total Bilirubin 0.8 AST 17 ALT 20 Alkaline Phosphatase 79 Total Protein 7.0 Albumin 2.8 L Stool Occult Blood Active Medications Generic Name Dose Route Start Last Admin Trade Name Freq PRN Reason Stop Dose Admin Folic Acid 1 mg 02/07/20 20:00 02/09/20 09:34 Folic Acid - PO 1 mg DAILY LAUREANO Administration Sodium Chloride 1,000 mls @ 100 mls/hr 02/07/20 16:15 02/08/20 17:31 Normal Saline - IV 02/10/20 02:14 100 mls/hr ASDIR LAUREANO Administration Piperacillin Sod/Tazobactam 100 mls @ 200 mls/hr 02/07/20 19:45 02/09/20 09:34 Sod 4.5 gm/ Dextrose IVPB 200 mls/hr Q8H-IV LAUREANO Administration Lorazepam 2 mg 02/07/20 19:56 Ativan - PO TID PRN AGITATION Multivitamins/Minerals 15 ml 02/07/20 20:00 02/09/20 11:19 Certavite-Antioxidant Liquid PO 15 ml DAILY LAUREANO Administration Ondansetron HCl 4 mg 02/07/20 16:20 02/08/20 22:21 Zofran Injection IVPUSH 4 mg Q6H PRN Administration NAUSEA AND/OR VOMITING Oxycodone HCl 10 mg 02/09/20 00:46 Roxicodone - PO ONCE PRN PAIN LEVEL 7 - 10 Thiamine HCl 100 mg 02/07/20 20:00 02/09/20 09:34 Vitamin B1 - PO 100 mg DAILY LAUREANO Administration ASSESSMENT/PLAN: Patient is a 39 year old female with history of open appendectomy (11/2019) presenting with severe right-sided abdominal pain. Sepsis secondary to abdominal abscess -Febrile overnight (Tmax 102.4F), WBC downtrending to 10.6 -CT abdomen, pelvis reveals postoperative fluid collections (3.0 x 2.2 x 2.1 cm). Additional 3cm collection at anterior abdominal wall. -General surgery recommendations (Dr. Gamez) appreciated. no surgical intervention indicated. -Follow up repeat CT abdomen, pelvis -Infectious disease recomendations (Dr. Sandoval) appreciated. Continue Zosyn -Interventional radiology recommendations appreciated. -Follow Blood cultures. Urine cultures negative for growth. -Follow OBGYN consult Alcohol use disorder -Currently no clinical signs of withdrawal; CIWA of 1 for slight headache. Negative tremors -Ativan 2mg PRN (patient has not yet required Ativan during hospitalization) -Thiamine, Folic acid, multivitamin Microcytic anemia -Hb 9.7/ Hct 30.4. MCV 77 -Iron studies confirm Iron deficiency anemia. Continue Venofer. -Stool for occult blood negative. FEN -NS at 100mL/ hour. Can discontinue once tolerating oral intake -Follow BMP -Clear liquid diet Prophylaxis -Early ambulation Disposition -Continue care in medical- surgical floor. Visit type - Emergency Visit Emergency Visit: Yes ED Registration Date: 02/07/20 Care time: The patient presented to the Emergency Department on the above date and was hospitalized for further evaluation of their emergent condition. - New Patient This patient is new to me today: No - Critical Care Critical Care patient: No - Discharge Referral Referred to [facility] Med P.C.: No ATTENDING PHYSICIAN STATEMENT I saw and evaluated the patient. I reviewed the resident's note and discussed the case with the resident. I agree with the resident's findings and plan as documented. SUBJECTIVE: OBJECTIVE: ASSESSMENT AND PLAN:
--- NOTE | 2020-02-09 16:04 | PN ---
Teaching Attending Note Name of Resident: Gutierrez Tejada ATTENDING PHYSICIAN STATEMENT I saw and evaluated the patient. I reviewed the resident's note and discussed the case with the resident. I agree with the resident's findings and plan as documented. SUBJECTIVE: Seen and examined at bedside. Increasing size of abscesses in 1 potentially new abscess. White count is falling and patient is hemodynamically stable OBJECTIVE: Last Vital Signs Temp Pulse Resp BP Pulse Ox 98.9 F 93 H 18 121/80 97 02/08/20 14:00 02/08/20 14:00 02/08/20 14:00 02/08/20 14:00 02/08/20 09:00 PE: per resident note Labs/imaging: reviewed ASSESSMENT/PLAN: Patient is a 39 year old female with history of open appendectomy (11/2019) presenting with severe right-sided abdominal pain. Found to have abdominal abscesses. Sepsis secondary to abdominal abscess -repeat CT shows abscesses increasing in size. Will discuss plan with IR and surgery -General surgery recommendations (Dr. Gamez) appreciated. no surgical intervention indicated. Will trial clear liquid diet. -Follow Blood cultures. Urine cultures negative for growth. -Follow OBGYN consult (Dr. Berger) Iron Deficiency Anemia -IV iron -obtain menstrual hx -FOBT Disposition: Pending clinical course
[2020-02-09] MEDS: SODIUM CHLORIDE 1,000 ML IV SCH (16:56)
[2020-02-09] MEDS: ACETAMINOPHEN 325 MG TABLET (FP) PO PRN (17:03)
--- NOTE | 2020-02-09 20:03 | CONSULT ---
Consult Consult Specialty:: OBGYN Reason for Consultation:: Ovarian cyst - History of Present Illness Chief Complaint: Fever, Abdominal Pain History of Present Illness: 39yo G0 s/p open appendectomy on 12/12 here with fever and abdominal pain. CT scan showing abdominal abscess near cecum and additional abdominal wall abscess Pt admitted in 02/06 S/P antibiotics and Gen Surg, IR and ID consultation Regular cycles. No history of STIs. No abnormal paps. Last PUBLIC WEIGHER exam 3-4 years ago. Thinks she was told she had an ovarian cyst at a hospital in the [place] 3-4years ago, small and required no treatment- likely physiology and not clinically relevant. Delayed PUBLIC WEIGHER consult as primary team did not call the appropriate covering physician for [facility] care at the time they placed the initial consult; despite attempts to orient them, primary team did not try not try to reach out again to appropriate Friday and Friday loss mitigation specialist physicians. - History Source History Provided By: Patient - Alcohol/Substance Use Hx Alcohol Use: Yes - Smoking History Smoking history: Never smoked Have you smoked in the past 12 months: No Home Medications - Allergies Allergies/Adverse Reactions: Allergies Allergy/AdvReac Type Severity Reaction Status Date / Time No Known Allergies Allergy Verified 02/07/20 08:26 - Home Medications Home Medications: Ambulatory Orders NK [No Known Home Medication] 12/13/19 Physical Exam Vital Signs: Vital Signs Temperature 100 F H 02/09/20 17:07 Pulse Rate 93 H 02/09/20 17:07 Respiratory Rate 20 02/09/20 17:07 Blood Pressure 136/80 02/09/20 17:07 O2 Sat by Pulse Oximetry (%) 97 02/09/20 09:00 Constitutional: Yes: Well Nourished (Exam deferred as PUBLIC WEIGHER exam not clinically indicated), No Distress, Calm Labs: CBC, BMP 02/09/20 06:45 02/09/20 06:45 Imaging - Results Cat Scan: Report Reviewed Ultrasound: Report Reviewed Assessment/Plan 39yo here with fever, abdominal pain and [address] scan in setting of open appendectomy 2 months ago. Chart an hospital course reviewed Labs reviewed; WBC improved ID recs reviewed, cultures negative. If spiking through Abx coverage, may need to broaden antibiotics per ID's rec. If still persistent, then surgical drainage should be reconsidered. Gen Surgery recs reviewed Imaging also reviewed including initial CT scan on 02/06 and repeat today 02/08- 3cm fluid collect at the base of the cecum and worsening abdominal wall abscess at site of surgical operation- now 4cm. Please refer to the original CT scan which clearly states there is no pelvic lesion or involvement. TVUS report and imaging reviewed; again, please refer to the report which states no ovarian lesions are noted. Follicles are a normal, if not reassuring, finding on a pre- menopausal female. Question of thickened ES can be evaluated as an outpatient with repeat ultrasound imaging needed in the future; this finding on sono has no relevance to her current clinical condition. Should she need operative management, General Surgery of IR would be the appropriate consultants; if those consultants are unable to accommodate the patient, certainly PUBLIC WEIGHER would not be appropriate given lack of PUBLIC WEIGHER pathology or involvement; perhaps consider transfer to a tertiary center if her course deteriorates. If an actual PUBLIC WEIGHER issue does present itself during this hospitalization, please call the loss mitigation specialist physician for [facility] care. Will sign off as there is no PUBLIC WEIGHER issues Patient may follow up as an outpatient with ROMELIA Berger MD
[2020-02-10] MEDS ORDERED: oxyCODONE HCL 5 MG TABLET PO PRN (00:48)
[2020-02-10] MEDS ORDERED: PIPERACILLIN/TAZOBACTAM 4.5 GM VIAL IVPB ONE ×3 (02:23→17:03)
[2020-02-10] MEDS ORDERED: DEXTROSE 5%-WATER 100 ML IVPB ONE ×3 (02:23→17:03)
[2020-02-10] MEDS: PIPERACILLIN/TAZOB 4.5 GM 4.5 GM in DEXTROSE 5%-WATER 100 ML IVPB SCH ×3 (02:39→17:45)
[2020-02-10 07:46] LABS: HEMATOCRIT 29.1 % (32.4-45.2); HEMOGLOBIN 9.4 GM/dL (10.7-15.3); MCH 24.8 pg (25.7-33.7); MCHC 32.3 g/dl (32.0-36.0); MEAN CELL VOLUME 76.9 fl (80-96); MEAN PLT VOLUME 10.6 fl (7.5-11.1); PLATELET COUNT 117 K/MM3 (134-434); RBC 3.79 M/mm3 (3.60-5.2); RDW 16.5 % (11.6-15.6); WHITE BLOOD COUNT 8.5 K/mm3 (4.0-10.0)
[2020-02-10 08:01] LABS: ALBUMIN 2.8 g/dl (3.4-5.0); BILIRUBIN,TOTAL 0.5 mg/dL (0.2-1); BLOOD UREA NITROGEN 5.6 mg/dL (7-18); CALCIUM 8.2 mg/dL (8.5-10.1); CREATININE 0.4 mg/dL (0.55-1.3); MAGNESIUM 2.2 mg/dL (1.8-2.4); PHOSPHOROUS 3.3 mg/dL (2.5-4.9); POTASSIUM 3.3 mmol/L (3.5-5.1); TOT PROT 6.9 g/dl (6.4-8.2)
[2020-02-10] MEDS: MULTIVIT-MINERALS ORAL LIQUID PO SCH (09:47)
[2020-02-10] MEDS: THIAMINE HCL 100 MG TABLET (FP) PO SCH (09:48)
[2020-02-10] MEDS: FOLIC ACID 1 MG TABLET (FP) PO SCH (09:48)
[2020-02-10] MEDS ORDERED: POTASSIUM CHLORIDE TABS 20 MEQ TABLET.ER (FP) PO ONE (13:44)
--- NOTE | 2020-02-10 14:08 | PN ---
Teaching Attending Note Name of Resident: Gutierrez Tejada ATTENDING PHYSICIAN STATEMENT I saw and evaluated the patient. I reviewed the resident's note and discussed the case with the resident. I agree with the resident's findings and plan as documented. SUBJECTIVE: Seen and examined at bedside. Less abd pain today but belly is firmer than bef ore. Pending decision from IR/surgery regarding management of abscesses. OBJECTIVE: Last Vital Signs Temp Pulse Resp BP Pulse Ox 98.2 F 72 18 130/74 97 02/10/20 09:00 02/10/20 09:00 02/10/20 09:00 02/10/20 09:00 02/10/20 09:00 PE: per resident note Labs/imaging: reviewed ASSESSMENT/PLAN: Patient is a 39 year old female with history of open appendectomy (11/2019) presenting with severe right-sided abdominal pain. Found to have abdominal abscesses. Sepsis secondary to abdominal abscess -repeat CT shows abscesses increasing in size. Will discuss plan with IR and surgery -Follow Blood cultures. Urine cultures negative for growth. -cont zosyn Iron Deficiency Anemia -IV iron -obtain menstrual hx -FOBT Disposition: Pending clinical course
--- NOTE | 2020-02-10 14:18 | PN ---
Physical Exam: SUBJECTIVE: Patient seen and examined at bedside. Endorses mild improvement in her abdominal pain. Tolerating liquids without worsening pain, nausea, or vomiting. OBJECTIVE: Vital Signs Period Temp Pulse Resp BP Sys/Arboleda Pulse Ox Last 24 Hr 98.2 F-100 F 72-93 18-20 130-138/74-80 97-97 GENERAL: The patient is awake, alert, and fully oriented, in no acute distress. HEAD: Normocephalic, atraumatic. EYES: PERRL, extraocular movements intact, sclera anicteric, conjunctiva clear. ENT: Oropharynx clear, without erythema or exudates. Moist mucous membranes. NECK: Trachea midline, full range of motion. Supple without lymphadenopathy. LUNGS: Breath sounds equal, clear to auscultation bilaterally. No wheezes, no crackles. No accessory muscle use. HEART: Regular rate and rhythm. S1, S2 without murmur, rub or gallop. ABDOMEN: Soft, nondistended. Tenderness to light palpation worst at right lower quadrant. No rebound tenderness. Normoactive bowel sounds x4 quadrants. No hepatosplenomegaly, no masses appreciated. EXTREMITIES: 2+ radial, dorsalis pedis pulses bilaterally. Warm, well-perfused. No lower extremity edema bilaterally. NEUROLOGICAL: Cranial nerves II through XII grossly intact. Normal speech. No gross focal deficits. Negative tremors bilateral arms. PSYCH: Normal mood, normal affect upon my encounter. SKIN: Warm, dry. Right lower quadrant open appendectomy scar clean, dry, well healed. Laboratory Results - last 24 hr 02/10/20 02/10/20 06:35 06:35 WBC 8.5 RBC 3.79 Hgb 9.4 L Hct 29.1 L MCV 76.9 L MCH 24.8 L MCHC 32.3 RDW 16.5 H Plt Count 117 L MPV 10.6 Sodium 136 Potassium 3.3 L Chloride 104 Carbon Dioxide 24 Anion Gap 8 BUN 5.6 L Creatinine 0.4 L Est GFR (CKD-EPI)AfAm 149.94 Est GFR (CKD-EPI)NonAf 129.37 Random Glucose 93 Calcium 8.2 L Phosphorus 3.3 Magnesium 2.2 Total Bilirubin 0.5 AST 17 ALT 20 Alkaline Phosphatase 80 Total Protein 6.9 Albumin 2.8 L Active Medications Generic Name Dose Route Start Last Admin Trade Name Freq PRN Reason Stop Dose Admin Acetaminophen 650 mg 02/09/20 16:00 02/09/20 17:03 Tylenol - PO 650 mg Q6H PRN Administration FEVER Folic Acid 1 mg 02/07/20 20:00 02/10/20 09:48 Folic Acid - PO 1 mg DAILY LAUREANO Administration Piperacillin Sod/Tazobactam 100 mls @ 200 mls/hr 02/07/20 19:45 02/10/20 09:47 Sod 4.5 gm/ Dextrose IVPB 200 mls/hr Q8H-IV LAURENAO Administration Potassium Chloride 20 meq/ 1,000 mls @ 100 mls/hr 02/10/20 13:45 Sodium Chloride IVPB 02/11/20 23:44 ASDIR LAUREANO Iron Sucrose 100 mg/ Sodium 100 mls @ 200 mls/hr 02/10/20 13:45 Chloride IVPB 02/10/20 14:14 ONCE ONE Lorazepam 2 mg 02/07/20 19:56 Ativan - PO TID PRN AGITATION Multivitamins/Minerals 15 ml 02/07/20 20:00 02/10/20 09:47 Certavite-Antioxidant Liquid PO 15 ml DAILY LAUREANO Administration Ondansetron HCl 4 mg 02/07/20 16:20 02/08/20 22:21 Zofran Injection IVPUSH 4 mg Q6H PRN Administration NAUSEA AND/OR VOMITING Potassium Chloride 40 meq 02/10/20 13:44 K-Dur - PO 02/10/20 13:45 ONCE ONE Thiamine HCl 100 mg 02/07/20 20:00 02/10/20 09:48 Vitamin B1 - PO 100 mg DAILY LAUREANO Administration ASSESSMENT/PLAN: Patient is a 39 year old female with history of open appendectomy (11/2019) p resenting with severe right-sided abdominal pain. Sepsis secondary to abdominal abscess -Febrile overnight (Tmax 101.5F), WBC normalized. -repeat CT abdomen, pelvis reveals interval increase in size of one abscess, slight decrease in size of second abscess, and additional third abscess not noted on prior study. -General surgery recommendations (Dr. Gamez) appreciated. Will discuss with IR regarding possible aspiration. -Infectious disease recomendations (Dr. Sandoval) appreciated. Continue Zosyn -Follow Blood cultures. Urine cultures negative for growth. Alcohol use disorder -Currently no clinical signs of withdrawal; CIWA of 1 for slight headache. Negative tremors -Thiamine, Folic acid, multivitamin Microcytic anemia -Hb 9.4/ Hct 29. MCV 77 -Iron studies confirm Iron deficiency anemia. Continue Venofer. -Stool for occult blood negative. FEN -NS at 100mL/ hour. Can discontinue once tolerating oral intake -Follow BMP -Clear liquid diet Prophylaxis -Early ambulation Disposition -Continue care in medical- surgical floor. Visit type - Emergency Visit Emergency Visit: Yes ED Registration Date: 02/07/20 Care time: The patient presented to the Emergency Department on the above date and was hospitalized for further evaluation of their emergent condition. - New Patient This patient is new to me today: No - Critical Care Critical Care patient: No - Discharge Referral Referred to [facility] Med P.C.: No ATTENDING PHYSICIAN STATEMENT I saw and evaluated the patient. I reviewed the resident's note and discussed the case with the resident. I agree with the resident's findings and plan as documented. SUBJECTIVE: OBJECTIVE: ASSESSMENT AND PLAN:
[2020-02-10] MEDS ORDERED: PT OWN MED DRAWER 7, Y5N ONE (14:28)
[2020-02-10] MEDS: SODIUM CHLORIDE 0.9%/KCL 20 MEQ/1,000 ML INFUS.BAG IV SCH (14:35)
--- NOTE | 2020-02-10 14:47 | PN ---
Progress Note, Physician History of Present Illness: better afebrile - Current Medication List Current Medications: Active Medications Acetaminophen (Tylenol -) 650 mg PO Q6H PRN PRN Reason: FEVER Last Admin: 02/09/20 17:03 Dose: 650 mg Documented by: Folic Acid (Folic Acid -) 1 mg PO DAILY [facility] Last Admin: 02/10/20 09:48 Dose: 1 mg Documented by: Piperacillin Sod/Tazobactam (Sod 4.5 gm/ Dextrose) 100 mls @ 200 mls/hr IVPB Q8H-IV LAUREANO Last Admin: 02/10/20 09:47 Dose: 200 mls/hr Documented by: Potassium Chloride/Sodium Chloride (Ns+20 Meq Kcl -) 20 meq in 1,000 mls @ 100 mls/hr IV ASDIR [facility] Last Admin: 02/10/20 14:35 Dose: 100 mls/hr Documented by: Iron Sucrose 100 mg/ Sodium (Chloride) 100 mls @ 200 mls/hr IVPB ONCE ONE Stop: 02/10/20 15:29 Lorazepam (Ativan -) 2 mg PO TID PRN PRN Reason: AGITATION Multivitamins/Minerals (Certavite-Antioxidant Liquid) 15 ml PO DAILY [facility] Last Admin: 02/10/20 09:47 Dose: 15 ml Documented by: Ondansetron HCl (Zofran Injection) 4 mg IVPUSH Q6H PRN PRN Reason: NAUSEA AND/OR VOMITING Last Admin: 02/08/20 22:21 Dose: 4 mg Documented by: Thiamine HCl (Vitamin B1 -) 100 mg PO DAILY [facility] Last Admin: 02/10/20 09:48 Dose: 100 mg Documented by: - Objective Vital Signs: Vital Signs Temperature 98.2 F 02/10/20 09:00 Pulse Rate 72 02/10/20 09:00 Respiratory Rate 18 02/10/20 09:00 Blood Pressure 130/74 02/10/20 09:00 O2 Sat by Pulse Oximetry (%) 97 02/10/20 09:00 Constitutional: Yes: No Distress, Calm Cardiovascular: Yes: S1, S2 Respiratory: Yes: Regular, CTA Bilaterally Gastrointestinal: Yes: Normal Bowel Sounds, Soft Musculoskeletal: Yes: WNL Extremities: Yes: WNL Neurological: Yes: Alert, Oriented Psychiatric: Yes: Alert, Oriented Labs: CBC, BMP 02/10/20 06:35 02/10/20 06:35 INR, PTT INR 1.36 (0.83-1.09) H 02/08/20 10:20 Assessment/Plan 39 year old female with history of open appendectomy (11/2019) presenting with severe right-sided abdominal pain. Found to have abdominal abscesses. sepsis abd abscess fever anemia leukocytosis plan continue abx monitor fevers wbc has normalized rest as per the team
[2020-02-10] MEDS ORDERED: IRON SUCROSE INJECTION 100 MG in SODIUM CHLORIDE 95 ML IVPB ONE (15:00)
[2020-02-11] MEDS ORDERED: PIPERACILLIN/TAZOBACTAM 4.5 GM VIAL IVPB ONE ×3 (01:42→17:49)
[2020-02-11] MEDS ORDERED: DEXTROSE 5%-WATER 100 ML IVPB ONE ×3 (01:43→17:49)
[2020-02-11] MEDS: PIPERACILLIN/TAZOB 4.5 GM 4.5 GM in DEXTROSE 5%-WATER 100 ML IVPB SCH ×3 (01:58→17:52)
[2020-02-11] MEDS: SODIUM CHLORIDE 0.9%/KCL 20 MEQ/1,000 ML INFUS.BAG IV SCH ×3 (01:58→23:50)
[2020-02-11] MEDS ORDERED: PT OWN MED DRAWER 7, Y5N ONE (09:12)
[2020-02-11] MEDS: MULTIVIT-MINERALS ORAL LIQUID PO SCH (09:14)
[2020-02-11] MEDS: THIAMINE HCL 100 MG TABLET (FP) PO SCH (09:15)
[2020-02-11] MEDS: FOLIC ACID 1 MG TABLET (FP) PO SCH (09:15)
--- NOTE | 2020-02-11 10:54 | PN ---
Progress Note, Physician History of Present Illness: patient still spiking fevers - Current Medication List Current Medications: Active Medications Acetaminophen (Tylenol -) 650 mg PO Q6H PRN PRN Reason: FEVER Last Admin: 02/09/20 17:03 Dose: 650 mg Documented by: Folic Acid (Folic Acid -) 1 mg PO DAILY [facility] Last Admin: 02/11/20 09:15 Dose: 1 mg Documented by: Piperacillin Sod/Tazobactam (Sod 4.5 gm/ Dextrose) 100 mls @ 200 mls/hr IVPB Q8H-IV LAUREANO Last Admin: 02/11/20 09:15 Dose: 200 mls/hr Documented by: Potassium Chloride/Sodium Chloride (Ns+20 Meq Kcl -) 20 meq in 1,000 mls @ 100 mls/hr IV ASDIR [facility] Last Admin: 02/11/20 01:58 Dose: 100 mls/hr Documented by: Multivitamins/Minerals (Certavite-Antioxidant Liquid) 15 ml PO DAILY [facility] Last Admin: 02/11/20 09:14 Dose: 15 ml Documented by: Ondansetron HCl (Zofran Injection) 4 mg IVPUSH Q6H PRN PRN Reason: NAUSEA AND/OR VOMITING Last Admin: 02/08/20 22:21 Dose: 4 mg Documented by: Thiamine HCl (Vitamin B1 -) 100 mg PO DAILY [facility] Last Admin: 02/11/20 09:15 Dose: 100 mg Documented by: - Objective Vital Signs: Vital Signs Temperature 99.2 F 02/11/20 05:00 Pulse Rate 72 02/11/20 05:00 Respiratory Rate 20 02/11/20 05:00 Blood Pressure 110/53 L 02/11/20 05:00 O2 Sat by Pulse Oximetry (%) 96 02/10/20 21:00 Constitutional: Yes: No Distress, Calm Cardiovascular: Yes: S1, S2 Respiratory: Yes: Regular, CTA Bilaterally Gastrointestinal: Yes: Normal Bowel Sounds, Soft Musculoskeletal: Yes: WNL Extremities: Yes: WNL Neurological: Yes: Alert, Oriented Psychiatric: Yes: Alert, Oriented Labs: CBC, BMP 02/10/20 06:35 02/10/20 06:35 INR, PTT INR 1.36 (0.83-1.09) H 02/08/20 10:20 Assessment/Plan 39 year old female with history of open appendectomy (11/2019) presenting with severe right-sided abdominal pain. Found to have abdominal abscesses. sepsis abd abscess fever anemia leukocytosis plan patient still spiking fever continue current abx would suggest to get a ct scan see if the collection has increased and if needed drain the collection
--- NOTE | 2020-02-11 15:55 | PN ---
Teaching Attending Note Name of Resident: Giovanna Garber ATTENDING PHYSICIAN STATEMENT I saw and evaluated the patient. I reviewed the resident's note and discussed the case with the resident. I agree with the resident's findings and plan as documented. SUBJECTIVE: Seen and examined at bedside. Discussed case with IR. Abscesses are currently not large enough to reach. Will observe on antibiotics for now. If patient continues to be febrile can consider repeating CT scan over the weekend but would be preferable to wait until Friday. OBJECTIVE: Last Vital Signs Temp Pulse Resp BP Pulse Ox 99 F 79 20 119/63 96 02/11/20 13:00 02/11/20 13:00 02/11/20 13:00 02/11/20 13:00 02/10/20 21:00 PE: per resident note Labs/imaging: reviewed ASSESSMENT/PLAN: Patient is a 39 year old female with history of open appendectomy (11/2019) presenting with severe right-sided abdominal pain. Found to have abdominal abscesses. Sepsis secondary to abdominal abscess -repeat CT shows abscesses increasing in size. Will discuss plan with IR and surgery -Follow Blood cultures. Urine cultures negative for growth. -cont zosyn Iron Deficiency Anemia -IV iron -obtain menstrual hx -FOBT Disposition: Pending clinical course
--- NOTE | 2020-02-11 16:19 | PN ---
Physical Exam: SUBJECTIVE: Patient seen and examined. No acute events noted. OBJECTIVE: Vital Signs Period Temp Pulse Resp BP Sys/Arboleda Pulse Ox Last 24 Hr 99 F-1007 F 72-89 18-20 106-127/52-87 96 GENERAL: The patient is awake, alert, and fully oriented, in no acute distress. LUNGS: Breath sounds equal, clear to auscultation bilaterally, no wheezes, no crackles, no accessory muscle use. HEART: Regular rate and rhythm, S1, S2 without murmur, rub or gallop. ABDOMEN: Soft, diffusely tender, nondistended, increased guarding and rebound, non-tympanitic. EXTREMITIES: 2+ pulses, warm, well-perfused, no edema. Active Medications Generic Name Dose Route Start Last Admin Trade Name Freq PRN Reason Stop Dose Admin Acetaminophen 650 mg 02/09/20 16:00 02/09/20 17:03 Tylenol - PO 650 mg Q6H PRN Administration FEVER Folic Acid 1 mg 02/07/20 20:00 02/11/20 09:15 Folic Acid - PO 1 mg DAILY LAUREANO Administration Piperacillin Sod/Tazobactam 100 mls @ 200 mls/hr 02/07/20 19:45 02/11/20 09:15 Sod 4.5 gm/ Dextrose IVPB 200 mls/hr Q8H-IV LAUREANO Administration Potassium Chloride/Sodium Chloride 20 meq in 1,000 mls @ 100 mls/hr 02/10/20 13:45 02/11/20 13:35 Ns+20 Meq Kcl - IV 100 mls/hr ASDIR LAUREANO Administration Multivitamins/Minerals 15 ml 02/07/20 20:00 02/11/20 09:14 Certavite-Antioxidant Liquid PO 15 ml DAILY LAUREANO Administration Ondansetron HCl 4 mg 02/07/20 16:20 02/08/20 22:21 Zofran Injection IVPUSH 4 mg Q6H PRN Administration NAUSEA AND/OR VOMITING Thiamine HCl 100 mg 02/07/20 20:00 02/11/20 09:15 Vitamin B1 - PO 100 mg DAILY LAUREANO Administration ASSESSMENT/PLAN: Patient is a 39 year old female with history of open appendectomy (11/2019) presenting with severe right-sided abdominal pain. #Sepsis 2/2 abdominal abscess -Febrile overnight (Tmax 100.7F), WBC normalized. -repeat CT abdomen, pelvis reveals interval increase in size of one abscess, slight decrease in size of second abscess, and additional third abscess not noted on prior study. -General surgery recommendations (Dr. Gamez) appreciated. Will discuss with IR regarding possible aspiration, IR stating to give it more time for the abscess to heal on its own. -Infectious disease recommendations (Dr. Sandoval) appreciated. Continue Zosyn day [address] however too soon and alot of radiation for her to have so soon. -Will assess pt's clinical status daily and allow more time for abscess to improve - Blood cultures. Urine cultures negative for growth. #Hypokalemia - persistent despite IV fluids with KCL added and kdur yesterday - no diarrhea noted - will continue to replet prn #Alcohol use disorder -Currently no clinical signs of withdrawal -Thiamine, Folic acid, multivitamin #Microcytic anemia -H/H stable today -Iron deficiency anemia. - Continue Venofer. -Stool for occult blood negative. FEN -NS at 100mL/ hour. Can discontinue once tolerating oral intake -Follow BMP -Clear liquid diet Prophylaxis -Early ambulation Disposition -Continue care in medical/surgical floor. Unknown dispo at this time as we are going to assess her clinical status daily. Visit type - Emergency Visit Emergency Visit: Yes ED Registration Date: 02/07/20 Care time: The patient presented to the Emergency Department on the above date and was hospitalized for further evaluation of their emergent condition. - New Patient This patient is new to me today: Yes Date on this admission: 02/11/20 - Critical Care Critical Care patient: No - Discharge Referral Referred to [facility] Med P.C.: No ATTENDING PHYSICIAN STATEMENT I saw and evaluated the patient. I reviewed the resident's note and discussed the case with the resident. I agree with the resident's findings and plan as documented. SUBJECTIVE: OBJECTIVE: ASSESSMENT AND PLAN:
[2020-02-11] MEDS ORDERED: POTASSIUM CHLORIDE TABS 20 MEQ TABLET.ER (FP) PO ONE (16:43)
[2020-02-12] MEDS ORDERED: PIPERACILLIN/TAZOBACTAM 4.5 GM VIAL IVPB ONE ×3 (01:09→16:55)
[2020-02-12] MEDS ORDERED: DEXTROSE 5%-WATER 100 ML IVPB ONE ×3 (01:09→16:55)
[2020-02-12] MEDS: PIPERACILLIN/TAZOB 4.5 GM 4.5 GM in DEXTROSE 5%-WATER 100 ML IVPB SCH ×3 (02:07→17:09)
[2020-02-12 07:47] LABS: BASO % 0.4 % (0-2.0); EOS % 1.5 % (0-4.5); HEMATOCRIT 30.6 % (32.4-45.2); HEMOGLOBIN 9.9 GM/dL (10.7-15.3); LYMPH % 18.9 % (8-40); MCH 25.3 pg (25.7-33.7); MCHC 32.2 g/dl (32.0-36.0); MEAN CELL VOLUME 78.4 fl (80-96); MEAN PLT VOLUME 10.2 fl (7.5-11.1); MONO % 8.6 % (3.8-10.2); NEUT % 70.6 % (42.8-82.8); PLATELET COUNT 168 K/MM3 (134-434); RDW 16.6 % (11.6-15.6); WHITE BLOOD COUNT 7.8 K/mm3 (4.0-10.0)
[2020-02-12 07:58] LABS: ALBUMIN 2.7 g/dl (3.4-5.0); BILIRUBIN,TOTAL 0.5 mg/dL (0.2-1); BLOOD UREA NITROGEN 3.1 mg/dL (7-18); CALCIUM 8.3 mg/dL (8.5-10.1); CREATININE 0.5 mg/dL (0.55-1.3); POTASSIUM 4.5 mmol/L (3.5-5.1); TOT PROT 6.6 g/dl (6.4-8.2)
--- NOTE | 2020-02-12 09:16 | PN ---
Physical Exam: SUBJECTIVE: Patient seen and examined. No acute events noted overnight. Pt admits to passing flatus and having a formed BM. Pt denies any cp, sob, bladder, bowel complaints, or fevers overnight. OBJECTIVE: Vital Signs Period Temp Pulse Resp BP Sys/Arboleda Pulse Ox Last 24 Hr 98.5 F-99.5 F 67-86 18-20 104-134/59-86 97 GENERAL: The patient is awake, alert, and fully oriented, in no acute distress. LUNGS: Breath sounds equal, clear to auscultation bilaterally, no wheezes, no crackles, no accessory muscle use. HEART: Regular rate and rhythm, S1, S2 without murmur, rub or gallop. ABDOMEN: Soft, mild tenderness to palpation over ruq, nondistended, non- tympanitic to percussion, normoactive bowel sound present. EXTREMITIES: 2+ pulses, warm, well-perfused, no edema. Laboratory Results - last 24 hr 02/12/20 02/12/20 06:25 06:25 WBC 7.8 RBC 3.90 Hgb 9.9 L Hct 30.6 L MCV 78.4 L MCH 25.3 L MCHC 32.2 RDW 16.6 H Plt Count 168 D MPV 10.2 Absolute Neuts (auto) 5.5 Neutrophils % 70.6 D Lymphocytes % 18.9 D Monocytes % 8.6 D Eosinophils % 1.5 D Basophils % 0.4 D Nucleated RBC % 0 Sodium 137 Potassium 4.5 Chloride 106 Carbon Dioxide 22 Anion Gap 9 BUN 3.1 L Creatinine 0.5 L Est GFR (CKD-EPI)AfAm 139.33 Est GFR (CKD-EPI)NonAf 120.22 Random Glucose 93 Calcium 8.3 L Total Bilirubin 0.5 AST 28 ALT 27 Alkaline Phosphatase 126 H Total Protein 6.6 Albumin 2.7 L Active Medications Generic Name Dose Route Start Last Admin Trade Name Freq PRN Reason Stop Dose Admin Acetaminophen 650 mg 02/09/20 16:00 02/09/20 17:03 Tylenol - PO 650 mg Q6H PRN Administration FEVER Folic Acid 1 mg 02/07/20 20:00 02/11/20 09:15 Folic Acid - PO 1 mg DAILY LAUREANO Administration Piperacillin Sod/Tazobactam 100 mls @ 200 mls/hr 02/07/20 19:45 02/12/20 02:07 Sod 4.5 gm/ Dextrose IVPB 200 mls/hr Q8H-IV LAUREANO Administration Potassium Chloride/Sodium Chloride 20 meq in 1,000 mls @ 100 mls/hr 02/10/20 13:45 02/11/20 23:50 Ns+20 Meq Kcl - IV 100 mls/hr ASDIR LAUREANO Administration Multivitamins/Minerals 15 ml 02/07/20 20:00 02/11/20 09:14 Certavite-Antioxidant Liquid PO 15 ml DAILY LAUREANO Administration Ondansetron HCl 4 mg 02/07/20 16:20 02/08/20 22:21 Zofran Injection IVPUSH 4 mg Q6H PRN Administration NAUSEA AND/OR VOMITING Thiamine HCl 100 mg 02/07/20 20:00 02/11/20 09:15 Vitamin B1 - PO 100 mg DAILY LAUREANO Administration ASSESSMENT/PLAN: Patient is a 39 year old female with history of open appendectomy (11/2019) presenting with severe right-sided abdominal pain. #Sepsis 2/2 abdominal abscess -Afebrile overnight, WBC normalized. -three abscesses found on most recent CT abdomen. -General surgery recommendations (Dr. Gamez) deferring drainage at this time. - IR would like to give it more time for the abscess to heal on its own rather than draining the abscesses given clinically she is not septic. -Infectious disease recommendations (Dr. Sandoval) appreciated. Continue Zosyn day [address] abd/pelvis for friday. -today pt clinically not septic or worsening, afebrile no leukocytosis seems to be responding to the zosyn. - Blood cultures. Urine cultures negative for growth. #Hypokalemia - resolved today - no diarrhea noted - will continue to replete prn #Alcohol use disorder -Currently no clinical signs of withdrawal -Thiamine, Folic acid, multivitamin #Microcytic anemia -H/H stable today -Iron deficiency anemia. - Continue Venofer. -Stool for occult blood negative. FEN -NS at 100mL/ hour. Can discontinue once tolerating oral intake -Follow BMP -Clear liquid diet Prophylaxis -Early ambulation Disposition -Continue care in medical/surgical floor. Unknown dispo at this time as we are going to assess her clinical status daily. Visit type - Emergency Visit Emergency Visit: Yes ED Registration Date: 02/07/20 Care time: The patient presented to the Emergency Department on the above date and was hospitalized for further evaluation of their emergent condition. - New Patient This patient is new to me today: No - Critical Care Critical Care patient: No - Discharge Referral Referred to [facility] Med [facility].C.: No ATTENDING PHYSICIAN STATEMENT I saw and evaluated the patient. I reviewed the resident's note and discussed the case with the resident. I agree with the resident's findings and plan as documented. SUBJECTIVE: OBJECTIVE: ASSESSMENT AND PLAN:
[2020-02-12] MEDS ORDERED: PT OWN MED DRAWER 7, Y5N ONE (09:25)
[2020-02-12] MEDS: FOLIC ACID 1 MG TABLET (FP) PO SCH (09:28)
[2020-02-12] MEDS: MULTIVIT-MINERALS ORAL LIQUID PO SCH (09:28)
[2020-02-12] MEDS: ACETAMINOPHEN 325 MG TABLET (FP) PO PRN (09:28)
[2020-02-12] MEDS: THIAMINE HCL 100 MG TABLET (FP) PO SCH (09:29)
--- NOTE | 2020-02-12 10:13 | PN ---
Progress Note, Physician History of Present Illness: afebrile starting to feel better - Current Medication List Current Medications: Active Medications Acetaminophen (Tylenol -) 650 mg PO Q6H PRN PRN Reason: FEVER Last Admin: 02/12/20 09:28 Dose: 650 mg Documented by: Folic Acid (Folic Acid -) 1 mg PO DAILY [facility] Last Admin: 02/12/20 09:28 Dose: 1 mg Documented by: Piperacillin Sod/Tazobactam (Sod 4.5 gm/ Dextrose) 100 mls @ 200 mls/hr IVPB Q8H-IV LAUREANO Last Admin: 02/12/20 09:28 Dose: 200 mls/hr Documented by: Potassium Chloride/Sodium Chloride (Ns+20 Meq Kcl -) 20 meq in 1,000 mls @ 100 mls/hr IV ASDIR LAUREANO Last Admin: 02/11/20 23:50 Dose: 100 mls/hr Documented by: Multivitamins/Minerals/Vitamin C (Tab-A-Vit -) 1 tab PO DAILY [facility] Ondansetron HCl (Zofran Injection) 4 mg IVPUSH Q6H PRN PRN Reason: NAUSEA AND/OR VOMITING Last Admin: 02/08/20 22:21 Dose: 4 mg Documented by: Thiamine HCl (Vitamin B1 -) 100 mg PO DAILY [facility] Last Admin: 02/12/20 09:29 Dose: 100 mg Documented by: - Objective Vital Signs: Vital Signs Temperature 98.5 F 02/12/20 05:00 Pulse Rate 71 02/12/20 05:00 Respiratory Rate 18 02/12/20 05:00 Blood Pressure 109/67 02/12/20 05:00 O2 Sat by Pulse Oximetry (%) 97 02/11/20 21:00 Constitutional: Yes: No Distress, Calm Cardiovascular: Yes: S1, S2 Respiratory: Yes: Regular, CTA Bilaterally Gastrointestinal: Yes: Normal Bowel Sounds, Soft Musculoskeletal: Yes: WNL Extremities: Yes: WNL Neurological: Yes: Alert, Oriented Psychiatric: Yes: Alert, Oriented Labs: CBC, BMP 02/12/20 06:25 02/12/20 06:25 INR, PTT INR 1.36 (0.83-1.09) H 02/08/20 10:20 Assessment/Plan 39 year old female with history of open appendectomy (11/2019) presenting with severe right-sided abdominal pain. Found to have abdominal abscesses. sepsis abd abscess fever anemia leukocytosis plan stable continue abx rest as per the team
--- NOTE | 2020-02-12 11:25 | PN ---
Progress Note (short form) - Note Progress Note: Attending Surgeon State she feels better; feels hungry and no pain VSS AF T max 99.5 abdo-soft; non tender; o/w negative. WBC-nl IMP: improved PLAN: IRD was not done after review of recent imaging by the interventional radiologist; will continue IVAB's and follow clinically; advance diet. Melvin Gamez MD FACS
--- NOTE | 2020-02-12 13:35 | PN ---
Teaching Attending Note Name of Resident: Marin Velasquez ATTENDING PHYSICIAN STATEMENT I saw and evaluated the patient. I reviewed the resident's note and discussed the case with the resident. I agree with the resident's findings and plan as documented. SUBJECTIVE: Seen and examined at bedside. Condition unchanged Abscesses are currently not large enough to reach. Will observe on antibiotics for now. If patient continues to be febrile can consider repeating CT scan over the weekend but would be preferable to wait until Friday. OBJECTIVE: Last Vital Signs Temp Pulse Resp BP Pulse Ox 99.1 F 63 20 107/55 L 93 L 02/12/20 09:00 02/12/20 09:00 02/12/20 09:00 02/12/20 09:00 02/12/20 09:00 PE: per resident note Labs/imaging: reviewed ASSESSMENT/PLAN: Patient is a 39 year old female with history of open appendectomy (11/2019) presenting with severe right-sided abdominal pain. Found to have abdominal abscesses. Sepsis secondary to abdominal abscess -repeat CT shows abscesses increasing in size. Will discuss plan with IR and surgery -Follow Blood cultures. Urine cultures negative for growth. -cont zosyn -If patient continues to be febrile can consider repeating CT scan over the weekend but would be preferable to wait until Friday. Iron Deficiency Anemia -IV iron -obtain menstrual hx -FOBT Disposition: Pending clinical course
[2020-02-12] MEDS: SODIUM CHLORIDE 0.9%/KCL 20 MEQ/1,000 ML INFUS.BAG IV SCH ×2 (17:10→23:07)
[2020-02-13] MEDS ORDERED: DEXTROSE 5%-WATER 100 ML IVPB ONE ×3 (00:59→16:49)
[2020-02-13] MEDS ORDERED: PIPERACILLIN/TAZOBACTAM 4.5 GM VIAL IVPB ONE ×3 (00:59→16:49)
[2020-02-13] MEDS: PIPERACILLIN/TAZOB 4.5 GM 4.5 GM in DEXTROSE 5%-WATER 100 ML IVPB SCH ×3 (01:10→17:06)
[2020-02-13 08:30] LABS: BASO % 0.4 % (0-2.0); EOS % 1.3 % (0-4.5); HEMATOCRIT 31.6 % (32.4-45.2); MCH 24.4 pg (25.7-33.7); MCHC 31.7 g/dl (32.0-36.0); MEAN PLT VOLUME 9.7 fl (7.5-11.1); MONO % 5.3 % (3.8-10.2); PLATELET COUNT 209 K/MM3 (134-434); RDW 16.6 % (11.6-15.6); WHITE BLOOD COUNT 8.7 K/mm3 (4.0-10.0)
[2020-02-13 08:55] LABS: ALBUMIN 2.8 g/dl (3.4-5.0); BILIRUBIN,TOTAL 0.4 mg/dL (0.2-1); BLOOD UREA NITROGEN 3.7 mg/dL (7-18); CALCIUM 8.7 mg/dL (8.5-10.1); CREATININE 0.4 mg/dL (0.55-1.3); POTASSIUM 4.3 mmol/L (3.5-5.1)
[2020-02-13] MEDS: ACETAMINOPHEN 325 MG TABLET (FP) PO PRN (09:35)
[2020-02-13] MEDS: MULTIVITAMINS (DAILY MVI) TABLET (FP) PO SCH (09:35)
[2020-02-13] MEDS: FOLIC ACID 1 MG TABLET (FP) PO SCH (09:35)
[2020-02-13] MEDS: THIAMINE HCL 100 MG TABLET (FP) PO SCH (09:36)
[2020-02-13] MEDS ORDERED: IRON SUCROSE INJECTION 100 MG in SODIUM CHLORIDE 95 ML IVPB ONE (10:00)
--- NOTE | 2020-02-13 10:38 | PN ---
Progress Note (short form) - Note Progress Note: Attending Surgeon No c/o; tolerating full liquids; ambulating and voiding and moving her bowels; no pain VSS AF abdo-soft and non tender. WBC-nl IMP: improved PLAN Regular diet; ID to decide lenghth of tx. w/ IV and/or PO antibiotics. Melvin Gamez MD FACS
[2020-02-13] MEDS: SODIUM CHLORIDE 0.9%/KCL 20 MEQ/1,000 ML INFUS.BAG IV SCH ×3 (10:40→21:59)
[2020-02-13] MEDS ORDERED: PT OWN MED DRAWER 7, Y5N ONE (10:42)
[2020-02-13] MEDS ORDERED: ACETAMINOPHEN 325 MG TABLET (FP) PO PRN (11:50)
--- NOTE | 2020-02-13 12:56 | PN ---
Progress Note, Physician History of Present Illness: afebrile stable wbc normalized - Current Medication List Current Medications: Active Medications Acetaminophen (Tylenol -) 650 mg PO Q6H PRN PRN Reason: PAIN LEVEL 1-5 Folic Acid (Folic Acid -) 1 mg PO DAILY [facility] Last Admin: 02/13/20 09:35 Dose: 1 mg Documented by: Piperacillin Sod/Tazobactam (Sod 4.5 gm/ Dextrose) 100 mls @ 200 mls/hr IVPB Q8H-IV [facility] Last Admin: 02/13/20 09:35 Dose: 200 mls/hr Documented by: Potassium Chloride/Sodium Chloride (Ns+20 Meq Kcl -) 20 meq in 1,000 mls @ 100 mls/hr IV ASDIR [facility] Last Admin: 02/13/20 10:40 Dose: 100 mls/hr Documented by: Multivitamins/Minerals/Vitamin C (Tab-A-Vit -) 1 tab PO DAILY [facility] Last Admin: 02/13/20 09:35 Dose: 1 tab Documented by: Ondansetron HCl (Zofran Injection) 4 mg IVPUSH Q6H PRN PRN Reason: NAUSEA AND/OR VOMITING Last Admin: 02/08/20 22:21 Dose: 4 mg Documented by: Thiamine HCl (Vitamin B1 -) 100 mg PO DAILY [facility] Last Admin: 02/13/20 09:36 Dose: 100 mg Documented by: - Objective Vital Signs: Vital Signs Temperature 98.8 F 02/13/20 06:00 Pulse Rate 69 02/13/20 06:00 Respiratory Rate 18 02/13/20 09:00 Blood Pressure 132/80 02/13/20 06:00 O2 Sat by Pulse Oximetry (%) 97 02/13/20 09:00 Constitutional: Yes: No Distress, Calm Cardiovascular: Yes: S1, S2 Respiratory: Yes: Regular, CTA Bilaterally Gastrointestinal: Yes: Normal Bowel Sounds, Soft Musculoskeletal: Yes: WNL Extremities: Yes: WNL Neurological: Yes: Alert, Oriented Psychiatric: Yes: Alert, Oriented Labs: CBC, BMP 02/13/20 07:50 02/13/20 07:50 INR, PTT INR 1.36 (0.83-1.09) H 02/08/20 10:20 Assessment/Plan 39 year old female with history of open appendectomy (11/2019) presenting with severe right-sided abdominal pain. Found to have abdominal abscesses. sepsis abd abscess fever anemia leukocytosis plan stable continue abx rest as per the team will d/w the team
--- NOTE | 2020-02-13 14:16 | PN ---
Physical Exam: SUBJECTIVE: Patient seen and examined at bedside. She endorses minimal abdominal pain. Denies subjective fevers, chills. OBJECTIVE: Vital Signs Period Temp Pulse Resp BP Sys/Arboleda Pulse Ox Last 24 Hr 98.3 F-98.8 F 67-72 18-20 111-132/65-80 94-97 GENERAL: The patient is awake, alert, and fully oriented, in no acute distress. HEAD: Normocephalic, atraumatic. EYES: PERRL, extraocular movements intact, sclera anicteric, conjunctiva clear. ENT: Oropharynx clear, without erythema or exudates. Moist mucous membranes. NECK: Trachea midline, full range of motion. Supple without lymphadenopathy. LUNGS: Breath sounds equal, clear to auscultation bilaterally. No wheezes, no crackles. No accessory muscle use. HEART: Regular rate and rhythm. S1, S2 without murmur, rub or gallop. ABDOMEN: Soft, nondistended. Tenderness to deep palpation worst at right lower quadrant. No rebound tenderness. Normoactive bowel sounds x4 quadrants. No hepatosplenomegaly, no masses appreciated. EXTREMITIES: 2+ radial, dorsalis pedis pulses bilaterally. Warm, well-perfused. No lower extremity edema bilaterally. NEUROLOGICAL: Cranial nerves II through XII grossly intact. Normal speech. No gross focal deficits. Negative tremors bilateral arms. PSYCH: Normal mood, normal affect upon my encounter. SKIN: Warm, dry. Right lower quadrant open appendectomy scar clean, dry, well healed. Laboratory Results - last 24 hr 02/13/20 02/13/20 07:50 07:50 WBC 8.7 RBC 4.10 Hgb 10.0 L Hct 31.6 L MCV 77.0 L MCH 24.4 L MCHC 31.7 L RDW 16.6 H Plt Count 209 D MPV 9.7 Absolute Neuts (auto) 6.7 Neutrophils % 78.0 Lymphocytes % 15.0 D Monocytes % 5.3 Eosinophils % 1.3 Basophils % 0.4 Nucleated RBC % 0 Sodium 138 Potassium 4.3 Chloride 106 Carbon Dioxide 24 Anion Gap 8 BUN 3.7 L Creatinine 0.4 L Est GFR (CKD-EPI)AfAm 149.94 Est GFR (CKD-EPI)NonAf 129.37 Random Glucose 90 Calcium 8.7 Total Bilirubin 0.4 AST 32 ALT 31 Alkaline Phosphatase 126 H Total Protein 7.0 Albumin 2.8 L Active Medications Generic Name Dose Route Start Last Admin Trade Name Freq PRN Reason Stop Dose Admin Acetaminophen 650 mg 02/13/20 11:50 Tylenol - PO Q6H PRN PAIN LEVEL 1-5 Folic Acid 1 mg 02/07/20 20:00 02/13/20 09:35 Folic Acid - PO 1 mg DAILY [facility] Administration Piperacillin Sod/Tazobactam 100 mls @ 200 mls/hr 02/07/20 19:45 02/13/20 09:35 Sod 4.5 gm/ Dextrose IVPB 200 mls/hr Q8H-IV [facility] Administration Potassium Chloride/Sodium Chloride 20 meq in 1,000 mls @ 100 mls/hr 02/10/20 13:45 02/13/20 10:40 Ns+20 Meq Kcl - IV 100 mls/hr ASDIR [facility] Administration Multivitamins/Minerals/Vitamin C 1 tab 02/13/20 10:00 02/13/20 09:35 Tab-A-Vit - PO 1 tab DAILY [facility] Administration Ondansetron HCl 4 mg 02/07/20 16:20 02/08/20 22:21 Zofran Injection IVPUSH 4 mg Q6H PRN Administration NAUSEA AND/OR VOMITING Thiamine HCl 100 mg 02/07/20 20:00 02/13/20 09:36 Vitamin B1 - PO 100 mg DAILY [facility] Administration ASSESSMENT/PLAN: Patient is a 39 year old female with history of open appendectomy (11/2019) presenting with severe right-sided abdominal pain. Sepsis secondary to abdominal abscess -Afebrile overnight. WBC normalized. -Repeat CT abdomen, pelvis reveals interval increase in size of one abscess, slight decrease in size of second abscess, and additional third abscess not noted on prior study. -General surgery recommendations (Dr. Gamez) appreciated. -Infectious disease recomendations (Dr. Sandoval) appreciated. Continue Zosyn -Blood cultures, urine cultures negative for growth. Alcohol use disorder -Currently no clinical signs of withdrawal. -Thiamine, Folic acid, multivitamin Microcytic anemia -Hb 10/ Hct 31. MCV 77 -Iron studies confirm Iron deficiency anemia. Continue Venofer. -Stool for occult blood negative. FEN -NS +20meq KCL at 100mL/ hour. Can discontinue once tolerating oral intake -Follow BMP -Trial of regular diet Prophylaxis -Early ambulation Disposition -Continue care in medical- surgical floor. Visit type - Emergency Visit Emergency Visit: Yes ED Registration Date: 02/07/20 Care time: The patient presented to the Emergency Department on the above date and was hospitalized for further evaluation of their emergent condition. - New Patient This patient is new to me today: No - Critical Care Critical Care patient: No - Discharge Referral Referred to [facility] No ATTENDING PHYSICIAN STATEMENT I saw and evaluated the patient. I reviewed the resident's note and discussed the case with the resident. I agree with the resident's findings and plan as documented. SUBJECTIVE: OBJECTIVE: ASSESSMENT AND PLAN:
--- NOTE | 2020-02-13 14:52 | PN ---
Teaching Attending Note Name of Resident: Gutierrez Tejada ATTENDING PHYSICIAN STATEMENT I saw and evaluated the patient. I reviewed the resident's note and discussed the case with the resident. I agree with the resident's findings and plan as documented. SUBJECTIVE: Seen and examined at bedside. White count normalized. Patient tolerating p.o. Will discuss length of IV treatment with ID. OBJECTIVE: Last Vital Signs Temp Pulse Resp BP Pulse Ox 98.8 F 69 18 132/80 97 02/13/20 06:00 02/13/20 06:00 02/13/20 09:00 02/13/20 06:00 02/13/20 09:00 PE: per resident note Labs/imaging: reviewed ASSESSMENT/PLAN: Patient is a 39 year old female with history of open appendectomy (11/2019) presenting with severe right-sided abdominal pain. Found to have abdominal abscesses. Sepsis secondary to abdominal abscess Patient is now afebrile tolerating p.o.: We will discuss length of IV antibiotic treatment with ID. -repeat CT shows abscesses increasing in size. -Follow Blood cultures. Urine cultures negative for growth. -cont zosyn -If patient continues to be febrile can consider repeating CT scan over the weekend but would be preferable to wait until Friday. Iron Deficiency Anemia -received IV iron 100mg x3 -FOBT negative -outpatient [facility] followup
[2020-02-14] MEDS ORDERED: DEXTROSE 5%-WATER 100 ML IVPB ONE ×2 (01:27→09:51)
[2020-02-14] MEDS ORDERED: PIPERACILLIN/TAZOBACTAM 4.5 GM VIAL IVPB ONE ×2 (01:27→09:51)
[2020-02-14] MEDS: PIPERACILLIN/TAZOB 4.5 GM 4.5 GM in DEXTROSE 5%-WATER 100 ML IVPB SCH ×2 (01:49→10:01)
[2020-02-14 08:25] LABS: HEMATOCRIT 31.1 % (32.4-45.2); HEMOGLOBIN 9.9 GM/dL (10.7-15.3); MCH 24.7 pg (25.7-33.7); MCHC 31.8 g/dl (32.0-36.0); MEAN CELL VOLUME 77.7 fl (80-96); MEAN PLT VOLUME 9.6 fl (7.5-11.1); PLATELET COUNT 226 K/MM3 (134-434); RDW 16.8 % (11.6-15.6); WHITE BLOOD COUNT 7.1 K/mm3 (4.0-10.0)
--- NOTE | 2020-02-14 08:41 | PN ---
Teaching Attending Note Name of Resident: Gutierrez Tejada ATTENDING PHYSICIAN STATEMENT I saw and evaluated the patient. I reviewed the resident's note and discussed the case with the resident. I agree with the resident's findings and plan as documented. SUBJECTIVE: Seen and examined at bedside. Patient is tolerating oral diet and ambulatory. She has been afebrile for greater than 48 hours. Patient is medically cleared for discharge. She will be sent home with 1 week of Augmentin and should have a repeat CAT scan in approximately 6 weeks to reevaluate the size of the abscesses and determine whether they need to be surgically removed. OBJECTIVE: Last Vital Signs Temp Pulse Resp BP Pulse Ox 98.4 F 52 L 20 107/54 L 96 02/14/20 06:33 02/14/20 06:33 02/14/20 06:33 02/14/20 06:02/13/20 21:00 PE: per resident note Labs/imaging: reviewed ASSESSMENT/PLAN: Patient is a 39 year old female with history of open appendectomy (11/2019) presenting with severe right-sided abdominal pain. Found to have abdominal abscesses. The patient was started on antibiotics with resolution of fever and improvement in pain. Surgical and interventional radiology were consulted: Per surgery does not require removal at this time and per interventional radiology the abscesses are too small at this time to be drained. The patient will be sent home on oral antibiotics and will have a repeat CAT scan in 6 weeks to reevaluate the size of the abscesses and the necessity of possible intervention.. The patient was also found to have iron deficiency anemia. She was given IV iron. She should be discharged on oral iron therapy and follow-up with outpatient gynecology.
[2020-02-14 08:51] LABS: ALBUMIN 2.9 g/dl (3.4-5.0); BILIRUBIN,TOTAL 0.4 mg/dL (0.2-1); CALCIUM 8.8 mg/dL (8.5-10.1); CREATININE 0.5 mg/dL (0.55-1.3); MAGNESIUM 2.3 mg/dL (1.8-2.4); PHOSPHOROUS 4.4 mg/dL (2.5-4.9); POTASSIUM 4.7 mmol/L (3.5-5.1); TOT PROT 6.9 g/dl (6.4-8.2)
--- NOTE | 2020-02-14 09:35 | PN ---
Progress Note, Physician History of Present Illness: stable mild pain - Current Medication List Current Medications: Active Medications Acetaminophen (Tylenol -) 650 mg PO Q6H PRN PRN Reason: PAIN LEVEL 1-5 Last Admin: 02/13/20 20:26 Dose: 650 mg Documented by: Folic Acid (Folic Acid -) 1 mg PO DAILY [facility] Last Admin: 02/13/20 09:35 Dose: 1 mg Documented by: Piperacillin Sod/Tazobactam (Sod 4.5 gm/ Dextrose) 100 mls @ 200 mls/hr IVPB Q8H-IV [facility] Last Admin: 02/14/20 01:49 Dose: 200 mls/hr Documented by: Potassium Chloride/Sodium Chloride (Ns+20 Meq Kcl -) 20 meq in 1,000 mls @ 100 mls/hr IV ASDIR [facility] Last Admin: 02/13/20 21:59 Dose: 100 mls/hr Documented by: Multivitamins/Minerals/Vitamin C (Tab-A-Vit -) 1 tab PO DAILY [facility] Last Admin: 02/13/20 09:35 Dose: 1 tab Documented by: Ondansetron HCl (Zofran Injection) 4 mg IVPUSH Q6H PRN PRN Reason: NAUSEA AND/OR VOMITING Last Admin: 02/08/20 22:21 Dose: 4 mg Documented by: Thiamine HCl (Vitamin B1 -) 100 mg PO DAILY [facility] Last Admin: 02/13/20 09:36 Dose: 100 mg Documented by: - Objective Vital Signs: Vital Signs Temperature 98.4 F 02/14/20 06:33 Pulse Rate 52 L 02/14/20 06:33 Respiratory Rate 20 02/14/20 06:33 Blood Pressure 107/54 L 02/14/20 06:33 O2 Sat by Pulse Oximetry (%) 96 02/13/20 21:00 Constitutional: Yes: No Distress, Calm Cardiovascular: Yes: S1, S2 Respiratory: Yes: Regular, CTA Bilaterally Gastrointestinal: Yes: Normal Bowel Sounds, Soft Musculoskeletal: Yes: WNL Extremities: Yes: WNL Neurological: Yes: Alert, Oriented Psychiatric: Yes: Alert, Oriented Labs: CBC, BMP 02/14/20 07:23 02/14/20 07:23 INR, PTT INR 1.36 (0.83-1.09) H 02/08/20 10:20 Assessment/Plan 39 year old female with history of open appendectomy (11/2019) presenting with severe right-sided abdominal pain. Found to have abdominal abscesses. sepsis abd abscess fever anemia leukocytosis plan stable abx can be changed to oral patient will need repeat imaging in couple of weeks to see for resolution of abscess rest as per he team abx --augmentin for another week
[2020-02-14] MEDS: FOLIC ACID 1 MG TABLET (FP) PO SCH (10:01)
[2020-02-14] MEDS: THIAMINE HCL 100 MG TABLET (FP) PO SCH (10:01)
[2020-02-14] MEDS: MULTIVITAMINS (DAILY MVI) TABLET (FP) PO SCH (10:01)
--- NOTE | 2020-02-14 13:52 | DS ---
Physical Exam: SUBJECTIVE: Patient seen and examined at bedside. She denies acute complaints. Tolerating diet without nausea, vomiting. OBJECTIVE: Vital Signs Period Temp Pulse Resp BP Sys/Arboleda Pulse Ox Last 24 Hr 98.4 F-99.0 F 52-76 18-20 102-127/54-65 96-96 PHYSICAL EXAM GENERAL: The patient is awake, alert, and fully oriented, in no acute distress. HEAD: Normocephalic, atraumatic. EYES: PERRL, extraocular movements intact, sclera anicteric, conjunctiva clear. ENT: Oropharynx clear, without erythema or exudates. Moist mucous membranes. NECK: Trachea midline, full range of motion. Supple without lymphadenopathy. LUNGS: Breath sounds equal, clear to auscultation bilaterally. No wheezes, no crackles. No accessory muscle use. HEART: Regular rate and rhythm. S1, S2 without murmur, rub or gallop. ABDOMEN: Soft, nondistended. Tenderness to deep palpation worst at right lower q uadrant. No rebound tenderness. Normoactive bowel sounds x4 quadrants. No hepatosplenomegaly, no masses appreciated. EXTREMITIES: 2+ radial, dorsalis pedis pulses bilaterally. Warm, well-perfused. No lower extremity edema bilaterally. NEUROLOGICAL: Cranial nerves II through XII grossly intact. Normal speech. No gross focal deficits. Negative tremors bilateral arms. PSYCH: Normal mood, normal affect upon my encounter. SKIN: Warm, dry. Right lower quadrant open appendectomy scar clean, dry, well healed. LABS Laboratory Results - last 24 hr 02/14/20 02/14/20 07:23 07:23 WBC 7.1 RBC 4.00 Hgb 9.9 L Hct 31.1 L MCV 77.7 L MCH 24.7 L MCHC 31.8 L RDW 16.8 H Plt Count 226 MPV 9.6 Sodium 139 Potassium 4.7 Chloride 107 Carbon Dioxide 24 Anion Gap 8 BUN 6.0 L Creatinine 0.5 L Est GFR (CKD-EPI)AfAm 139.33 Est GFR (CKD-EPI)NonAf 120.22 Random Glucose 90 Calcium 8.8 Phosphorus 4.4 Magnesium 2.3 Total Bilirubin 0.4 AST 23 ALT 28 Alkaline Phosphatase 115 Total Protein 6.9 Albumin 2.9 L HOSPITAL COURSE: Date of Admission:02/07/20 Date of Discharge: 02/14/20 Patient is a 39 year old female with history of open appendectomy (11/2019) presenting with severe right-sided abdominal pain. CT abdomen, pelvis revealed postoperative fluid collections (3.0 x 2.2 x 2.1 cm) with additional 3cm collection at anterior abdominal wall. Patient was evaluated by general surgery, and interventional radiology- no surgical intervention was deemed necessary, and the fluid collectiosn were too small to drain. Patient evaluated by ID and started on Zosyn. Patient continued to be febrile and repeat CT abdomen, pelvis reveals interval increase in size of one abscess, slight decrease in size of second abscess, and additional third abscess not noted on prior study. Patient's symptoms improved, and remained afebrile for over 48 hours with continued antibiotics course. Tolerating full diet. Discharged home with Augmentin for 7 days, to follow up CT abdomen, pelvis within 6 weeks. Minutes to complete discharge: 36 Discharge Summary Problems reviewed: Yes Reason For Visit: UTI POST OP SEPSIS Current Active Problems Endometrial mass (Acute) Postoperative abscess (Acute) UTI (urinary tract infection) (Acute) Condition: Stable - Instructions Diet, Activity, Other Instructions: You were admitted to the hospital for evaluation of abdominal pain. CT scans of your abdomen and pelvis revealed abscesses (collection of fluid infection). You were evaluated by the general surgeon, interventional radiologist, and infectious disease physician. You were treated with IV antibiotics. Continue taking your home medications as directed You will take antibiotic Augmentin 875mg by mouth twice a day (every 12 hours) for 7 days. You will require a follow up CT scan of your abdomen, pelvis within 6 weeks. Discus this further with your primary care physician. You were found to have Iron deficiency anemia. You will continue taking Iron pills (ferrous sulfate) 325mg twice a day. Follow up with your primary care physician within one -two days after discharge. A referral to Dr. Burleson has been provided. Follow up with your OBGYN- a referral has been provided. Return to the nearest emergency department if you experience worsening symptoms, fevers, chills, shortness of breath, chest pain, palpitations, worsening abdominal pain, nausea, vomiting, any trauma or loss of consciousness. Referrals: Chang Burleson MD [Staff Physician] - Maricruz Berger MD [Staff Physician] - Disposition: HOME - Home Medications Comprehensive Discharge Medication List: Ambulatory Orders Amox-Tr/K Cl [Augmentin - 875Mg Tablet] 1 tab PO BID 7 Days #14 tablet 02/14/20 Ferrous Sulfate [Feosol] 325 mg PO BID 30 Days #60 tablet 02/14/20 This patient is new to me today: No Emergency Visit: Yes ED Registration Date: 02/07/20 Care time: The patient presented to the Emergency Department on the above date and was hospitalized for further evaluation of their emergent condition. Critical Care patient: No - Discharge Referral Referred to [facility] No ATTENDING PHYSICIAN STATEMENT I saw and evaluated the patient. I reviewed the resident's note and discussed the case with the resident. I agree with the resident's findings and plan as documented. SUBJECTIVE: OBJECTIVE: ASSESSMENT AND PLAN:
[2020-02-14 15:04] VITALS: BP 117/64; PULSE 70; TEMP 99
== END 2020-02-14 15:33 | disposition home or self-care (01) | DRG 721 ==
LOC: JER 07:59 → JERBED 12:48 → J8W 17:23
PROVIDERS: ADMIT Internal Medicine; ATTEND Internal Medicine
DX: T81.44XA Sepsis following a procedure, initial encounter (principal); T81.40XA Infection following a procedure, unspecified, initial encounter; R50.9 Fever, unspecified; N83.201 Unspecified ovarian cyst, right side; F10.10 Alcohol abuse, uncomplicated; K65.1 Peritoneal abscess; E87.6 Hypokalemia; L02.211 Cutaneous abscess of abdominal wall; D72.829 Elevated white blood cell count, unspecified; D50.9 Iron deficiency anemia, unspecified; R10.31 Right lower quadrant pain; T36.8X5A Adverse effect of other systemic antibiotics, initial encounter; Y83.9 Surgical procedure, unspecified as the cause of abnormal reaction of the patient, or of later complication, without mention of misadventure at the time of the procedure; Z72.89 Other problems related to lifestyle
CPT/HCPCS: 36415; 74177-TC; 76830-TC; 80048; 80053; 81003; 82272; 82728; 83540; 83550; 83605; 83690; 83735; 84100; 84703; 85025; 85027; 85610; 87040; 87086; 93005; 93010; 99285-25; J0131; J1756; Q9967; U0003